=== PATIENT | female | born 1930 | race Caucasian/White ===

== ENCOUNTER 2016-12-03 19:12 | Inpatient (IN) | payer MEDICARE, BC ==
[~2016-12-03] VITALS: Ht 157.5 cm; Wt 90.0 kg
[~2016-12-03 19:12] MED LIST: ASPIRIN ADULT L81 MG PO; BUMEX1 M1 PO; DOCQLACE100 MG PO; FISH OIL1000 M2 PO; HUMALOG KWI100 MG/ML SC; JANUVIA100 MG PO; LANTUS100 MG/ML SC; LEVOTHYROXIN175 MC1 PO; LOSARTAN POT25 MG PO; MAGNESIUM CITR100 MG PO; OMEPRAZOLE20 M2 PO; OXYCOD/APAP1 TA4 PO; RESTORIL15 M1 PO; SPIRONOLACT25 MG PO; TRICOR145 MG PO; VITAMIN D-31000 UNI1 PO
[2016-12-03] MEDS ORDERED: SERTRALINE HCL25 MG PO (19:42)
[2016-12-03] MEDS ORDERED: LANTUS SOLOSTAR SC (19:45)
[2016-12-03 19:57] LABS: HEMATOCRIT 33.7 % (37.0-47.0); IMMATURE GRANULOCYTES 0.4 % (0.0-1.0); MEAN CELL VOLUME 85.8 fL CALC (80.0-100.0); MEAN CORPUSCULAR HGB CONC 32.6 g/L CALC (32.0-36.0); NEUT# 6.83 thou/uL (2.00-7.15); RED BLOOD COUNT 3.93 mill/uL (4.20-5.60); RED CELL DISTRI WIDTH 14.5 % (11.5-15.5)
[2016-12-03 20:16] LABS: ALKALINE PHOSPHATASE 105 u/l (38-126); AMYLASE 50 u/l (30-110); ANION GAP 15 (6-22 (CALC)); BILIRUBIN, TOTAL 0.4 mg/dL (0.0-1.4); BUN 34 mg/dL (8-23); BUN/CREATININE RATIO 28 (12-20 (CALC)); CALCIUM 9.8 mg/dL (8.4-10.2); CARBON DIOXIDE 26 mmol/l (22-30); CHLORIDE 102 mmol/l (95-108); CREATININE 1.2 mg/dL (0.5-1.0); GFR 43 ML/MIN (>=60 (CALC)); GFR FOR AFR.AMER. 52 ML/MIN (>=60 (CALC)); GLUCOSE 142 mg/dL (82-115); LIPASE 18 u/l (23-300); POTASSIUM 4.1 mmol/l (3.5-5.1); SGOT/AST 33 u/l (9-36); SGPT/ALT 20 u/l (11-66); SODIUM 139 mmol/l (137-146); TOTAL PROTEIN 7.4 g/dL (6.3-8.2)
[2016-12-03 20:27] LABS: MYOGLOBIN 73 ng/mL (0 - 62)
[2016-12-03 23:50] VITALS: BP 118/59
[2016-12-04 02:30] LABS: URINE BILIRUBIN - DIPSTICK NEGATIVE (NEGATIVE); URINE BLOOD DIPSTICK TRACE-INTACT (NEGATIVE); URINE CLARITY TURBID; URINE COLOR YELLOW; URINE GLUCOSE - DIPSTICK NEGATIVE (NEGATIVE); URINE KETONE NEGATIVE (NEGATIVE); URINE NITRITE - DIPSTICK NEGATIVE (Negative); URINE PROTEIN - DIPSTICK 30 mg/dL (NEG-TRACE); URINE SPECIFIC GRAVITY 1.025; URINE UROBILINOGEN - DIPSTICK 0.2 E.U./dL (0.2)
[2016-12-04 02:33] LABS: URINE LEUK ESTERASE MODERATE (NEGATIVE)
[2016-12-04 02:35] LABS: URINE BACTERIA MANY hpf; URINE SQUAMOUS EPITHELIAL CELL FEW EPI/hpf (0-FEW)
[2016-12-04 04:00] VITALS: BP 119/60
[2016-12-04 08:12] VITALS: BP 99/51
[2016-12-04 09:08] LABS: HEMATOCRIT 32.7 % (37.0-47.0); HEMOGLOBIN 10.5 g/dl (12.0-16.0); IMMATURE GRANULOCYTES 0.6 % (0.0-1.0); MEAN CELL VOLUME 87.2 fL CALC (80.0-100.0); MEAN CORPUSCULAR HGB CONC 32.1 g/L CALC (32.0-36.0); NEUT# 4.66 thou/uL (2.00-7.15); RED BLOOD COUNT 3.75 mill/uL (4.20-5.60); RED CELL DISTRI WIDTH 14.5 % (11.5-15.5)
[2016-12-04 09:40] LABS: ALBUMIN 3.6 g/dL (3.2-5.0); BILIRUBIN, TOTAL 0.4 mg/dL (0.0-1.4); CALCIUM 9.2 mg/dL (8.4-10.2); CREATININE 1.3 mg/dL (0.5-1.0); POTASSIUM 4.7 mmol/l (3.5-5.1); TOTAL PROTEIN 6.5 g/dL (6.3-8.2)
[2016-12-04 10:35] VITALS: BP 93/49
[2016-12-04 15:03] VITALS: BP 90/51
[2016-12-04 19:28] VITALS: BP 99/51
[2016-12-04 23:38] VITALS: BP 110/67
[2016-12-05 04:40] VITALS: BP 103/59
[2016-12-05 05:08] LABS: HEMATOCRIT 33.6 % (37.0-47.0); HEMOGLOBIN 10.6 g/dl (12.0-16.0); IMMATURE GRANULOCYTES 0.4 % (0.0-1.0); MEAN CELL VOLUME 88.4 fL CALC (80.0-100.0); MEAN CORPUSCULAR HGB 27.9 pG CALC (26.0-32.0); MEAN CORPUSCULAR HGB CONC 31.5 g/L CALC (32.0-36.0); NEUT# 7.09 thou/uL (2.00-7.15); RED BLOOD COUNT 3.8 mill/uL (4.20-5.60); RED CELL DISTRI WIDTH 14.6 % (11.5-15.5)
[2016-12-05 05:23] LABS: ALBUMIN 3.2 g/dL (3.2-5.0); BILIRUBIN, TOTAL 0.4 mg/dL (0.0-1.4); CALCIUM 9.1 mg/dL (8.4-10.2)
[2016-12-05 05:30] LABS: POTASSIUM 5.2 mmol/l (3.5-5.1)
[2016-12-05 05:52] LABS: TSH, 3RD GENERATION 2.15 uIU/mL (0.47 - 4.68)
[2016-12-05 08:45] VITALS: BP 106/43
[2016-12-05 11:38] VITALS: BP 99/47
[2016-12-05 16:06] VITALS: BP 111/61
[2016-12-05 20:48] VITALS: BP 161/62
[2016-12-06] VITALS (9 sets, daily range): BP systolic 113–247; BP diastolic 55–108
[2016-12-06 04:57] LABS: HEMOGLOBIN 9.8 g/dl (12.0-16.0); IMMATURE GRANULOCYTES 1.2 % (0.0-1.0); MEAN CELL VOLUME 85.7 fL CALC (80.0-100.0); MEAN CORPUSCULAR HGB CONC 32.7 g/L CALC (32.0-36.0); NEUT# 8.56 thou/uL (2.00-7.15); RED BLOOD COUNT 3.5 mill/uL (4.20-5.60); RED CELL DISTRI WIDTH 14.7 % (11.5-15.5)
[2016-12-06 05:23] LABS: ALBUMIN 3.1 g/dL (3.2-5.0); BILIRUBIN, TOTAL 0.4 mg/dL (0.0-1.4); CREATININE 1.8 mg/dL (0.5-1.0); POTASSIUM 4.9 mmol/l (3.5-5.1); TOTAL PROTEIN 5.9 g/dL (6.3-8.2)
[2016-12-07 04:20] VITALS: BP 135/71
[2016-12-07 06:01] LABS: HEMATOCRIT 32.7 % (37.0-47.0); HEMOGLOBIN 10.4 g/dl (12.0-16.0); IMMATURE GRANULOCYTES 0.9 % (0.0-1.0); MEAN CELL VOLUME 86.5 fL CALC (80.0-100.0); MEAN CORPUSCULAR HGB 27.5 pG CALC (26.0-32.0); MEAN CORPUSCULAR HGB CONC 31.8 g/L CALC (32.0-36.0); NEUT# 6.8 thou/uL (2.00-7.15); RED BLOOD COUNT 3.78 mill/uL (4.20-5.60); RED CELL DISTRI WIDTH 14.7 % (11.5-15.5)
[2016-12-07 06:04] LABS: CALCIUM 9.2 mg/dL (8.4-10.2); CREATININE 1.2 mg/dL (0.5-1.0); POTASSIUM 4.6 mmol/l (3.5-5.1)
[2016-12-07 08:08] VITALS: BP 140/73
[2016-12-07 11:00] VITALS: BP 134/49
[2016-12-07 15:23] VITALS: BP 130/54
[2016-12-07 19:08] VITALS: BP 137/71
[2016-12-08] VITALS: BP 138/74
[2016-12-08 03:20] VITALS: BP 136/63
[2016-12-08 05:31] LABS: ANION GAP 12 (6-22 (CALC)); BUN 21 mg/dL (8-23); BUN/CREATININE RATIO 22 (12-20 (CALC)); CALCIUM 9.1 mg/dL (8.4-10.2); CARBON DIOXIDE 24 mmol/l (22-30); CHLORIDE 109 mmol/l (95-108); GFR 53 ML/MIN (>=60 (CALC)); GFR FOR AFR.AMER. > 60 ML/MIN (>=60 (CALC)); GLUCOSE 132 mg/dL (82-115); POTASSIUM 4.7 mmol/l (3.5-5.1); SODIUM 141 mmol/l (137-146)
[2016-12-08 05:33] LABS: HEMATOCRIT 33.2 % (37.0-47.0); HEMOGLOBIN 10.7 g/dl (12.0-16.0); IMMATURE GRANULOCYTES 0.6 % (0.0-1.0); MEAN CELL VOLUME 87.1 fL CALC (80.0-100.0); MEAN CORPUSCULAR HGB 28.1 pG CALC (26.0-32.0); MEAN CORPUSCULAR HGB CONC 32.2 g/L CALC (32.0-36.0); NEUT# 6.68 thou/uL (2.00-7.15); RED BLOOD COUNT 3.81 mill/uL (4.20-5.60); RED CELL DISTRI WIDTH 14.8 % (11.5-15.5)
[2016-12-08 08:21] VITALS: BP 118/59
[2016-12-08 11:20] VITALS: BP 146/70
[2016-12-08 15:54] VITALS: BP 140/67
[2016-12-08 20:25] VITALS: BP 147/69
[2016-12-09 00:30] VITALS: BP 134/68
[2016-12-09 05:05] VITALS: BP 154/73
[2016-12-09 06:07] LABS: HEMATOCRIT 30.6 % (37.0-47.0); HEMOGLOBIN 10.1 g/dl (12.0-16.0); IMMATURE GRANULOCYTES 0.9 % (0.0-1.0); MEAN CELL VOLUME 85.5 fL CALC (80.0-100.0); MEAN CORPUSCULAR HGB 28.2 pG CALC (26.0-32.0); NEUT# 5.09 thou/uL (2.00-7.15); RED BLOOD COUNT 3.58 mill/uL (4.20-5.60); RED CELL DISTRI WIDTH 14.6 % (11.5-15.5)
[2016-12-09 06:32] LABS: ANION GAP 12 (6-22 (CALC)); BUN 16 mg/dL (8-23); BUN/CREATININE RATIO 19 (12-20 (CALC)); CARBON DIOXIDE 23 mmol/l (22-30); CHLORIDE 108 mmol/l (95-108); CREATININE 0.9 mg/dL (0.5-1.0); GFR 60 ML/MIN (>=60 (CALC)); GFR FOR AFR.AMER. > 60 ML/MIN (>=60 (CALC)); GLUCOSE 120 mg/dL (82-115); POTASSIUM 4.6 mmol/l (3.5-5.1); SODIUM 138 mmol/l (137-146)
[2016-12-09 09:56] VITALS: BP 141/70
[2016-12-09 11:43] VITALS: BP 145/67
[2016-12-09 16:02] VITALS: BP 138/66
[2016-12-09 19:35] VITALS: BP 144/54
[2016-12-10 00:20] VITALS: BP 163/81
[2016-12-10 04:07] VITALS: BP 147/65
[2016-12-10 05:46] LABS: HEMATOCRIT 29.1 % (37.0-47.0); HEMOGLOBIN 9.5 g/dl (12.0-16.0); IMMATURE GRANULOCYTES 0.5 % (0.0-1.0); MEAN CELL VOLUME 84.8 fL CALC (80.0-100.0); MEAN CORPUSCULAR HGB 27.7 pG CALC (26.0-32.0); MEAN CORPUSCULAR HGB CONC 32.6 g/L CALC (32.0-36.0); NEUT# 4.39 thou/uL (2.00-7.15); RED BLOOD COUNT 3.43 mill/uL (4.20-5.60); RED CELL DISTRI WIDTH 14.7 % (11.5-15.5)
[2016-12-10 06:06] LABS: ANION GAP 12 (6-22 (CALC)); BUN 17 mg/dL (8-23); BUN/CREATININE RATIO 18 (12-20 (CALC)); CALCIUM 8.8 mg/dL (8.4-10.2); CARBON DIOXIDE 25 mmol/l (22-30); CHLORIDE 106 mmol/l (95-108); CREATININE 0.9 mg/dL (0.5-1.0); GFR 60 ML/MIN (>=60 (CALC)); GFR FOR AFR.AMER. > 60 ML/MIN (>=60 (CALC)); GLUCOSE 116 mg/dL (82-115); POTASSIUM 4.2 mmol/l (3.5-5.1); SODIUM 139 mmol/l (137-146)
[2016-12-10 08:54] VITALS: BP 150/55
[2016-12-10 12:56] VITALS: BP 148/72
[2016-12-10 16:25] VITALS: BP 140/71
[2016-12-10 19:00] VITALS: BP 127/63
[2016-12-11 00:21] VITALS: BP 118/59
[2016-12-11 06:17] VITALS: BP 151/76
[2016-12-11 09:03] VITALS: BP 152/74
[2016-12-11] MEDS ORDERED: TRICOR145 MG PO (09:15)
[2016-12-11] MEDS ORDERED: SERTRALINE HCL25 MG PO (09:16)
[2016-12-11] MEDS ORDERED: SPIRONOLACT25 MG PO (09:16)
[2016-12-11] MEDS ORDERED: OXYCOD/APAP1 TA4 PO (09:16)
[2016-12-11] MEDS ORDERED: ASPIRIN ADULT L81 MG PO (09:16)
[2016-12-11] MEDS ORDERED: LOSARTAN POT25 MG PO (09:16)
[2016-12-11] MEDS ORDERED: OMEPRAZOLE20 M2 PO (09:17)
[2016-12-11] MEDS ORDERED: DOCQLACE100 MG PO (09:17)
[2016-12-11] MEDS ORDERED: BUMEX1 M1 PO (09:17)
[2016-12-11] MEDS ORDERED: LANTUS SOLOSTAR SC (09:17)
[2016-12-11] MEDS ORDERED: JANUVIA100 MG PO (09:17)
[2016-12-11] MEDS ORDERED: HUMALOG KWI100 MG/ML SC (09:18)
[2016-12-11] MEDS ORDERED: FISH OIL1000 M2 PO (09:18)
[2016-12-11] MEDS ORDERED: VITAMIN D-31000 UNI1 PO (09:18)
[2016-12-11] MEDS ORDERED: LEVOTHYROXIN175 MC1 PO (09:18)
[2016-12-11] MEDS ORDERED: LANTUS100 MG/ML SC (09:18)
[2016-12-11] MEDS ORDERED: ROCEPHIN 1 GM1 GM IM (09:22)
[2016-12-11] MEDS ORDERED: PERCOCET 5/325M1 TAB PO (09:22)
== END 2016-12-11 14:15 | DRG 392 ==
LOC: ENPENDDIS → ED 19:12 → ED-I 22:05 → ED 22:19 → MS2 22:20
PROVIDERS: Emergency Medicine; ADMIT Internal Medicine Geriatric Medicine; ATTEND Internal Medicine Geriatric Medicine
PROC: 02HV33Z Insertion of Infusion Device into Superior Vena Cava, Percutaneous Approach (ICD-10-PCS; principal; 2016-12-09)
PROC: B518ZZA Fluoroscopy of Superior Vena Cava, Guidance (ICD-10-PCS; 2016-12-09)
DX: K57.32 Diverticulitis of large intestine without perforation or abscess without bleeding (principal); N39.0 Urinary tract infection, site not specified; E11.9 Type 2 diabetes mellitus without complications; I10 Essential (primary) hypertension; B96.20 Unspecified Escherichia coli [E. coli] as the cause of diseases classified elsewhere; I25.10 Atherosclerotic heart disease of native coronary artery without angina pectoris; K21.9 Gastro-esophageal reflux disease without esophagitis; E78.5 Hyperlipidemia, unspecified; M19.90 Unspecified osteoarthritis, unspecified site; E03.9 Hypothyroidism, unspecified; G89.29 Other chronic pain; M54.5 Low back pain; J40 Bronchitis, not specified as acute or chronic; F41.9 Anxiety disorder, unspecified; Z87.11 Personal history of peptic ulcer disease

== ENCOUNTER 2016-12-12 10:24 | Emergency (ER) | payer MEDICARE, BC ==
[~2016-12-12] VITALS: Ht 157.5 cm; Wt 103.0 kg
[~2016-12-12 10:24] MED LIST changes: +LANTUS SOLOSTAR SC; +PERCOCET 5/325M1 TAB PO; +ROCEPHIN 1 GM1 GM IM; +SERTRALINE HCL25 MG PO
[2016-12-12 11:17] VITALS: BP 134/59
== END 2016-12-12 11:38 ==
LOC: ED 10:24
DX: S91.112A Laceration without foreign body of left great toe without damage to nail, initial encounter (principal); J44.9 Chronic obstructive pulmonary disease, unspecified; N39.0 Urinary tract infection, site not specified; E11.9 Type 2 diabetes mellitus without complications; I10 Essential (primary) hypertension; E03.9 Hypothyroidism, unspecified; X58.XXXA Exposure to other specified factors, initial encounter

== ENCOUNTER 2017-04-24 07:01 | Emergency (ER) | payer MEDICARE, BC ==
[~2017-04-24] VITALS: Ht 157.5 cm; Wt 90.0 kg
[2017-04-24 07:37] LABS: HEMATOCRIT 33.5 % (37.0-47.0); HEMOGLOBIN 10.8 g/dl (12.0-16.0); IMMATURE GRANULOCYTES 0.4 % (0.0-1.0); MEAN CELL VOLUME 85.9 fL CALC (80.0-100.0); MEAN CORPUSCULAR HGB 27.7 pG CALC (26.0-32.0); MEAN CORPUSCULAR HGB CONC 32.2 g/L CALC (32.0-36.0); NEUT# 8.49 thou/uL (2.00-7.15); RED BLOOD COUNT 3.9 mill/uL (4.20-5.60); RED CELL DISTRI WIDTH 14.6 % (11.5-15.5)
[2017-04-24 07:41] LABS: ALBUMIN 4.4 g/dL (3.2-5.0); BILIRUBIN, TOTAL 0.4 mg/dL (0.0-1.4); CREATININE 1.7 mg/dL (0.5-1.0); TOTAL PROTEIN 7.6 g/dL (6.3-8.2)
[2017-04-24 07:42] LABS: POTASSIUM 5.2 mmol/l (3.5-5.1)
[2017-04-24 07:55] LABS: PROTHROMBIN TIME 11.4 SECONDS (9.0-12.5)
[2017-04-24] MEDS ORDERED: CALCIUM600 M3 PO (08:12)
[2017-04-24] MEDS ORDERED: HYDROCHLOROT25 MG PO (08:13)
[2017-04-24 08:43] LABS: MAGNESIUM 1.5 mg/dL (1.6-2.3)
[2017-04-24 08:45] LABS: URINE BILIRUBIN - DIPSTICK NEGATIVE (NEGATIVE); URINE BLOOD DIPSTICK LARGE (NEGATIVE); URINE COLOR YELLOW; URINE GLUCOSE - DIPSTICK NEGATIVE (NEGATIVE); URINE KETONE TRACE mg/dL (NEGATIVE); URINE LEUK ESTERASE MODERATE (Negative); URINE NITRITE - DIPSTICK NEGATIVE (Negative); URINE PROTEIN - DIPSTICK 30 mg/dL (NEG-TRACE); URINE UROBILINOGEN - DIPSTICK 0.2 E.U./dL (0.2)
[2017-04-24 08:57] LABS: URINE CLARITY HAZY
[2017-04-24 08:59] LABS: URINE BACTERIA FEW hpf; URINE EPITHELIAL CELLS MODERATE EPI/hpf (0-FEW)
[2017-04-24 09:14] LABS: TSH, 3RD GENERATION 4.67 uIU/mL (0.47 - 4.68)
[2017-04-24 09:59] LABS: C. DIFFICILE TOXIN A&B NEGATIVE (NEGATIVE)
[2017-04-24 11:21] VITALS: BP 104/51
== END 2017-04-24 11:40 | disposition short-term general hospital (02) ==
LOC: ED 07:01
PROVIDERS: Emergency Medicine
DX: R00.1 Bradycardia, unspecified (principal); I95.9 Hypotension, unspecified; R10.9 Unspecified abdominal pain; K57.32 Diverticulitis of large intestine without perforation or abscess without bleeding; R19.7 Diarrhea, unspecified; N39.0 Urinary tract infection, site not specified; I10 Essential (primary) hypertension; E03.9 Hypothyroidism, unspecified; E11.9 Type 2 diabetes mellitus without complications; Z79.4 Long term (current) use of insulin
CPT/HCPCS: J3475

== ENCOUNTER 2017-05-30 11:48 | Emergency (ER) | payer MEDICARE, BC ==
[~2017-05-30] VITALS: Ht 157.5 cm; Wt 82.0 kg
[~2017-05-30 11:48] MED LIST changes: +CALCIUM600 M3 PO; +HYDROCHLOROT25 MG PO
[2017-05-30] MEDS ORDERED: MAXZIDE-2537.5 MG/TA PO (12:24)
[2017-05-30] MEDS ORDERED: LANTUS SOL100 UNIT/M SC ×2 (12:26)
[2017-05-30] MEDS ORDERED: VITAMIN D32000 UNIT PO (12:28)
[2017-05-30 13:45] LABS: URINE BILIRUBIN - DIPSTICK NEGATIVE (NEGATIVE); URINE BLOOD DIPSTICK TRACE-INTACT (NEGATIVE); URINE COLOR YELLOW; URINE GLUCOSE - DIPSTICK NEGATIVE (NEGATIVE); URINE KETONE NEGATIVE (NEGATIVE); URINE NITRITE - DIPSTICK NEGATIVE (Negative); URINE PH 5.5 (4.5-8.0); URINE PROTEIN - DIPSTICK 30 mg/dL (NEG-TRACE); URINE UROBILINOGEN - DIPSTICK 0.2 E.U./dL (0.2)
[2017-05-30 13:47] LABS: HEMATOCRIT 32.3 % (37.0-47.0); HEMOGLOBIN 10.2 g/dl (12.0-16.0); IMMATURE GRANULOCYTES 0.2 % (0.0-1.0); MEAN CELL VOLUME 86.6 fL CALC (80.0-100.0); MEAN CORPUSCULAR HGB 27.3 pG CALC (26.0-32.0); MEAN CORPUSCULAR HGB CONC 31.6 g/L CALC (32.0-36.0); NEUT# 5.46 thou/uL (2.00-7.15); RED BLOOD COUNT 3.73 mill/uL (4.20-5.60); RED CELL DISTRI WIDTH 14.9 % (11.5-15.5)
[2017-05-30 13:49] LABS: URINE LEUK ESTERASE SMALL (NEGATIVE)
[2017-05-30 13:50] LABS: URINE CLARITY CLOUDY
[2017-05-30 13:52] LABS: ALKALINE PHOSPHATASE 98 u/l (38-126); AMYLASE 30 u/l (30-110); ANION GAP 18 (6-22 (CALC)); BILIRUBIN, TOTAL 0.5 mg/dL (0.0-1.4); BUN 28 mg/dL (8-23); BUN/CREATININE RATIO 30 (12-20 (CALC)); CALCIUM 9.3 mg/dL (8.4-10.2); CARBON DIOXIDE 19 mmol/l (22-30); CHLORIDE 106 mmol/l (95-108); CREATININE 0.9 mg/dL (0.5-1.0); GFR 60 ML/MIN (>=60 (CALC)); GFR FOR AFR.AMER. > 60 ML/MIN (>=60 (CALC)); GLUCOSE 93 mg/dL (82-115); LIPASE 18 u/l (23-300); SGOT/AST 25 u/l (9-36); SGPT/ALT 24 u/l (11-66); SODIUM 137 mmol/l (137-146)
[2017-05-30 13:54] LABS: POTASSIUM 5.8 mmol/l (3.5-5.1)
[2017-05-30 14:04] LABS: MYOGLOBIN 74 ng/mL (0 - 62)
[2017-05-30 14:20] LABS: URINE BACTERIA MANY hpf; URINE SQUAMOUS EPITHELIAL CELL FEW EPI/hpf (0-FEW); URINE WBC 20-50 WBC/hpf (0-5)
[2017-05-30 14:32] LABS: TSH, 3RD GENERATION 13.8 uIU/mL (0.47 - 4.68)
[2017-05-30 16:22] VITALS: BP 122/89
== END 2017-05-30 16:13 | disposition short-term general hospital (02) ==
LOC: ED 11:48
PROVIDERS: Emergency Medicine
DX: R00.1 Bradycardia, unspecified (principal); N39.0 Urinary tract infection, site not specified; B96.20 Unspecified Escherichia coli [E. coli] as the cause of diseases classified elsewhere; M19.90 Unspecified osteoarthritis, unspecified site; J44.9 Chronic obstructive pulmonary disease, unspecified; E11.9 Type 2 diabetes mellitus without complications; I10 Essential (primary) hypertension; E03.9 Hypothyroidism, unspecified

== ENCOUNTER 2018-03-08 12:27 | Emergency (ER) | payer MEDICARE, BC ==
[~2018-03-08] VITALS: Ht 157.5 cm; Wt 90.9 kg
[~2018-03-08 12:27] MED LIST changes: +LANTUS SOL100 UNIT/M SC; +MAXZIDE-2537.5 MG/TA PO; +VITAMIN D32000 UNIT PO
[2018-03-08] MEDS ORDERED: PERCOCET 10/31 COMBO PO (12:42)
[2018-03-08] MEDS ORDERED: FISH OIL1000 MG PO (12:42)
[2018-03-08] MEDS ORDERED: HUMALOG KW100 UNIT/M SC (12:45)
[2018-03-08] MEDS ORDERED: COLACE100 MG PO (12:46)
[2018-03-08] MEDS ORDERED: SERTRALINE25 MG PO (12:46)
[2018-03-08] MEDS ORDERED: ASPIRINCHW 81MG PO (12:47)
[2018-03-08] MEDS ORDERED: LOSARTAN POT25 MG PO (12:47)
[2018-03-08] MEDS ORDERED: LEVOTHYROXIN100 MCG PO (12:49)
[2018-03-08] MEDS ORDERED: ACETAMIN325 MG PO (12:50)
[2018-03-08] MEDS ORDERED: PRILOSEC20 MG/CAP PO (12:51)
[2018-03-08] MEDS ORDERED: LASIX 40 MG TAB40 MG PO (12:52)
[2018-03-08 15:20] VITALS: BP 159/74
== END 2018-03-08 15:20 ==
LOC: ED 12:27
DX: S00.83XA Contusion of other part of head, initial encounter (principal); S80.01XA Contusion of right knee, initial encounter; S90.01XA Contusion of right ankle, initial encounter; S02.2XXA Fracture of nasal bones, initial encounter for closed fracture; R04.0 Epistaxis; W18.11XA Fall from or off toilet without subsequent striking against object, initial encounter; Y93.E8 Activity, other personal hygiene; Y92.121 Bathroom in nursing home as the place of occurrence of the external cause; I10 Essential (primary) hypertension; Z95.0 Presence of cardiac pacemaker

== ENCOUNTER 2018-10-25 20:08 | Observation (INO) | payer MEDICARE, BC ==
[~2018-10-25] VITALS: Ht 157.5 cm; Wt 96.0 kg
[~2018-10-25 20:08] MED LIST changes: +ACETAMIN325 MG PO; +ASPIRINCHW 81MG PO; +COLACE100 MG PO; +FISH OIL1000 MG PO; +HUMALOG KW100 UNIT/M SC; +LASIX 40 MG TAB40 MG PO; +LEVOTHYROXIN100 MCG PO; +PERCOCET 10/31 COMBO PO; +PRILOSEC20 MG/CAP PO; +SERTRALINE25 MG PO
--- NOTE | 2018-10-25 20:21 | NUR ---
PT TO ROOM PER EMS/PT APPEARS A/O X3, PT IS MCGRATH
[2018-10-25 20:52] LABS: HEMOGLOBIN 11.1 g/dl (12.0-16.0); IMMATURE GRANULOCYTES 0.7 % (0.0-5.0); MEAN CELL VOLUME 83.9 fL CALC (80.0-100.0); MEAN CORPUSCULAR HGB 26.6 pG CALC (26.0-32.0); MEAN CORPUSCULAR HGB CONC 31.7 g/L CALC (32.0-36.0); NEUT# 8.22 thou/uL (2.00-7.15); RED BLOOD COUNT 4.17 mill/uL (4.20-5.60); RED CELL DISTRI WIDTH 14.3 % (11.5-15.5)
[2018-10-25 21:08] LABS: ALBUMIN 3.9 g/dL (3.2-5.0); ALKALINE PHOSPHATASE 109 u/l (38-126); ANION GAP 15 (6-22 (CALC)); BILIRUBIN, TOTAL 0.4 mg/dL (0.0-1.4); BUN 28 mg/dL (8-23); BUN/CREATININE RATIO 26 (12-20 (CALC)); CARBON DIOXIDE 28 mmol/l (22-30); CHLORIDE 99 mmol/l (95-108); CREATININE 1.1 mg/dL (0.5-1.0); GFR 47 ML/MIN (>=60 (CALC)); GFR FOR AFR.AMER. 57 ML/MIN (>=60 (CALC)); POTASSIUM 4.1 mmol/l (3.5-5.1); SGOT/AST 33 u/l (9-36); SODIUM 138 mmol/l (137-146); TOTAL PROTEIN 6.9 g/dL (6.3-8.2)
--- NOTE | 2018-10-25 21:15 | NUR ---
PT BACK FROM CT. WAITING ON RESULTS. PAIN IMPROVED 11/14
[2018-10-25 21:20] LABS: MYOGLOBIN 245 ng/mL (0 - 62)
--- NOTE | 2018-10-25 22:25 | NUR ---
ALL RESULTS ON CHART.
--- NOTE | 2018-10-25 22:51 | NUR ---
REPPORT GIVEN TO VALERIANO SANTANA
--- NOTE | 2018-10-25 22:57 | NUR ---
PT TRANSPORTED TO FLOOR VIA STRETCHER BY [facility] [employer] [employer].
[2018-10-25 23:00] VITALS: BP 156/74
--- NOTE | 2018-10-25 23:00 | NUR ---
PT ARRIVED TO UNIT VIA STRETCHER WITH ER STAFF; ASSISTED TO BED X 3 PERSON MAX ASSIST. ALERT AND ORIENTED; HARD OF HEARING. C/O MILD HEADACHE; NOTABLE DISCOLORATION AND ABRASION TO LEFT FRONTAL FOREHEAD AND FACE. RESPIRATIONS EVEN AND UNLABORED ON ROOM AIR. UPON ARRIVAL PT WAS INCONTINENT OF URINE AND STOOL; HYGEINE GIVEN. PHOTOS TAKEN OF DISCOLORATIONS TO FACE AND RIGHT HIP. ORIENTED TO ROOM AND CALL LIGHT SYSTEM. PLAN OF CARE DISCUSSED. PT ENCOURAGED TO VERBALIZE CONCERNS. STATES UNDERSTANDING. SAFETY MEASURES IN PLACE. CALL LIGHT WITHIN REACH.
--- NOTE | 2018-10-25 23:54 | NUR ---
ASSESSMENT COMPLETE. IV FLUIDS INITIATED; 4+ PITTING EDEMA NOTED TO BLE; ELEVATED ON PILLOWS. 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
[2018-10-26] VITALS: BP 123/81
--- NOTE | 2018-10-26 03:00 | NUR ---
OXYGEN APPLIED AT 2L VIA NC FOR INTERMITTENT DROPPING OF OXYGEN SATURATION. PT HAS HX OF SLEEP APNEA. DOES NOT WEAR OXYGEN AT HOME. CURRENTLY 99% WITH OXYGEN IN PLACE.
[2018-10-26 04:00] VITALS: BP 139/64
--- NOTE | 2018-10-26 05:54 | NUR ---
TYLENOL GIVEN FOR HEADACHE AND AM MEDS ADMINISTERED. HOLD COLACE FOR LOOSE STOOLS. COOL WASH CLOTH APPLIED TO LEFT FACE; INCREASED SWELLING TO FACE; EYE HARDER TO OPEN. NEURO CHECK WNL.
[2018-10-26 06:34] LABS: HEMATOCRIT 34.1 % (37.0-47.0); IMMATURE GRANULOCYTES 0.3 % (0.0-5.0); MEAN CELL VOLUME 82.8 fL CALC (80.0-100.0); MEAN CORPUSCULAR HGB 26.7 pG CALC (26.0-32.0); MEAN CORPUSCULAR HGB CONC 32.3 g/L CALC (32.0-36.0); NEUT# 5.35 thou/uL (2.00-7.15); RED BLOOD COUNT 4.12 mill/uL (4.20-5.60); RED CELL DISTRI WIDTH 14.1 % (11.5-15.5)
[2018-10-26 06:50] LABS: ALBUMIN 3.6 g/dL (3.2-5.0); ALKALINE PHOSPHATASE 98 u/l (38-126); ANION GAP 12 (6-22 (CALC)); BILIRUBIN, TOTAL 0.4 mg/dL (0.0-1.4); BUN 28 mg/dL (8-23); BUN/CREATININE RATIO 28 (12-20 (CALC)); CARBON DIOXIDE 30 mmol/l (22-30); CHLORIDE 100 mmol/l (95-108); GFR 53 ML/MIN (>=60 (CALC)); GFR FOR AFR.AMER. > 60 ML/MIN (>=60 (CALC)); HDL CHOLESTEROL 42 mg/dL (>=40); POTASSIUM 3.7 mmol/l (3.5-5.1); SGOT/AST 28 u/l (9-36); SODIUM 138 mmol/l (137-146); TOTAL PROTEIN 6.3 g/dL (6.3-8.2); TOTAL TRIGLYCERIDES 209 mg/dl (30-149); VLDL CHOLESTROL 42 mg/dl (0-48 (CALC))
[2018-10-26 06:57] LABS: CALCULATED LDLCHOLESTEROL 141 mg/dL (62-129 (CALC)); CHOLESTEROL HDL RATIO 5.4 (<4.4 (CALC)); TOTAL CHOLESTEROL 225 mg/dl (0-199)
[2018-10-26 08:00] VITALS: BP 140/56
--- NOTE | 2018-10-26 09:35 | NUR ---
PT SEEN BY DR MARS THIS AM, ORDERS CT FACIAL BONES PER ORBITAL TENDERNESS AND SWELLING. PT ALERT AND ORIENTED X 3, STATES THAT SHE USES ELECTRIC WHEELCHAIR FOR AMBULATION AT [facility]. NEURO CHECKS WNL.
--- NOTE | 2018-10-26 12:00 | NUR ---
PT REMAINS AT REST IN THE BED, NO DISTRESS NOTED. NO COMPLAINTS OF PAIN. PT STATES THAT SHE TAKES LANTUS BID, ORDER RECEIVED FROM DR MARS.
--- NOTE | 2018-10-26 12:23 | NUR ---
PT SITTING UP IN BED, EATING LUNCH.
[2018-10-26 14:00] VITALS: BP 160/58
--- NOTE | 2018-10-26 16:16 | NUR ---
PT HAS HAD AN UNEVENTFUL AFTERNOON, SEEN RESTING QUIETLY IN THE BED, NO DISTRESS, NO COMPLAINT OF PAIN OR OTHERWISE.
--- NOTE | 2018-10-26 17:09 | NUR ---
PT OFF UNIT, TO CATSCAN VIA WC WITH THIS RN.
--- NOTE | 2018-10-26 18:18 | NUR ---
PT WATCHING TELVISION IN BED. ICE PACK APPLIED TO FOREHEAD. TELE IN PLACE. PT DENIES ANY NEEDS. CALL LIGHT IN REACH. WILL CONTINUE TO MONITOR.
[2018-10-26 18:55] VITALS: BP 159/70
--- NOTE | 2018-10-26 19:00 | NUR ---
REPORT RECIEVED FROM DOMINIQUE.VALVE LAPPER. PT A/OX3. ABLE TO VOICE NEEDS. POC DISCUSSED. PT VOICED UNDERSTANDING. PT FALL RISK. EDUCATED TO CALL BEFORE ATTEMPTING TO GET. IV PATENT. NO S/S OF INFECTION. BED IN LOWEST POSITION. CALL LIGHT IN REACH. WILL MONITOR.
[2018-10-26 23:42] VITALS: BP 150/78
--- NOTE | 2018-10-27 | NUR ---
PT RESTING WITH EYES CLOSED. NO DISTRESS NOTED. IV PATENT. IV ABX ADMINISTRED. PT DENIES PAIN. WILL CONTINUE TO MONITOR.
[2018-10-27 04:15] VITALS: BP 138/72
--- NOTE | 2018-10-27 04:59 | NUR ---
PT RESTING INBED WITH EYES CLOSED. EASILY AROUSABLE. NO PAIN OR DISTRESS NOTED. BED IN LOWEST POSITION. CALL LIGHT WITHIN REACH WILL CONTINUE.
[2018-10-27 07:36] VITALS: BP 157/67
--- NOTE | 2018-10-27 07:45 | NUR ---
REPORT RECEIVED FROM NIGHT NURSE; PT SITTING UP IN CHAIR WATCHING TV; A/OX3; RESP EVEN AND UNLABORED ON ROOM AIR; TELE IN PLACE; PULSES STRONG; ABRAISION & DISCOLORATION NOTED TO LEFT FRONTAL FOREHEAD AND FACE; ABLE TO OPEN LEFT EYE PARTIALY: +3 EDEMA NOTED TO BLE; NS AT 125CC/HR SITE APPEARS HEALTHY; SAFETY PRECAUTION REINFORCE; CALL CULLEN IN REACH; AM MEDS ADMINISTERED, TOLERATED WELL;
--- NOTE | 2018-10-27 08:57 | NUR ---
DR MARS AT BEDSIDE TO DISCUSS POC.
[2018-10-27] MEDS ORDERED: PERCOCET 10/31 COMBO PO (09:02)
[2018-10-27 11:15] VITALS: BP 138/66
[2018-10-27 11:17] LABS: HEMATOCRIT 34.7 % (37.0-47.0); HEMOGLOBIN 10.8 g/dl (12.0-16.0); IMMATURE GRANULOCYTES 0.5 % (0.0-5.0); MEAN CORPUSCULAR HGB 26.2 pG CALC (26.0-32.0); MEAN CORPUSCULAR HGB CONC 31.1 g/L CALC (32.0-36.0); NEUT# 4.97 thou/uL (2.00-7.15); RED BLOOD COUNT 4.13 mill/uL (4.20-5.60); RED CELL DISTRI WIDTH 14.4 % (11.5-15.5)
[2018-10-27 11:49] LABS: ANION GAP 14 (6-22 (CALC)); BUN 21 mg/dL (8-23); BUN/CREATININE RATIO 29 (12-20 (CALC)); CARBON DIOXIDE 25 mmol/l (22-30); CHLORIDE 106 mmol/l (95-108); CREATININE 0.7 mg/dL (0.5-1.0); GFR > 60 ML/MIN (>=60 (CALC)); GFR FOR AFR.AMER. > 60 ML/MIN (>=60 (CALC)); SODIUM 141 mmol/l (137-146)
--- NOTE | 2018-10-27 12:02 | NUR ---
PT SITTING UP IN CHAIR WATCHING TV; EATING LUNCH; RESP EVEN AND UNLABORED; ABLE TO OPEN L EYE FULLY; VOICE NO CONCERNS;
--- NOTE | 2018-10-27 12:33 | NUR ---
DC INSTRUCTIONS GIVEN TO PT AND FAMILIES; VERBALIZE UNDERSTANDING; GRAND DAUGHTER WILL TAKE PT BACK TO THE [facility].
--- NOTE | 2018-10-27 12:54 | NUR ---
Discharge instructions given. Patient verbalizes understanding of same. Discharged in stable condition via Wheelchair to *Other with family. All belongings sent with pt.
--- NOTE | 2018-10-27 13:00 | NUR ---
REPORT GIVEN TO AMOL/KEITH LOPEZ; PRESCRIPTION AND DC ORDERS GIVEN TO PT.
== END 2018-10-27 12:55 ==
LOC: ED 20:08 → ED-I 21:29 → ICU 21:51 → ED 21:51 → ICU 21:51 → MS2 10-26 17:17
PROVIDERS: Emergency Medicine; ADMIT Internal Medicine Geriatric Medicine; ATTEND Internal Medicine Geriatric Medicine
DX: S05.11XA Contusion of eyeball and orbital tissues, right eye, initial encounter (principal); S70.01XA Contusion of right hip, initial encounter; I10 Essential (primary) hypertension; E03.9 Hypothyroidism, unspecified; E11.42 Type 2 diabetes mellitus with diabetic polyneuropathy; J44.9 Chronic obstructive pulmonary disease, unspecified; E78.5 Hyperlipidemia, unspecified; I25.10 Atherosclerotic heart disease of native coronary artery without angina pectoris; M19.90 Unspecified osteoarthritis, unspecified site; F41.9 Anxiety disorder, unspecified; G47.30 Sleep apnea, unspecified; W18.2XXA Fall in (into) shower or empty bathtub, initial encounter; Y93.E1 Activity, personal bathing and showering; Y92.091 Bathroom in other non-institutional residence as the place of occurrence of the external cause; Z95.0 Presence of cardiac pacemaker
CPT/HCPCS: G0378

== ENCOUNTER 2018-11-17 18:30 | Emergency (ER) | payer MEDICARE, BC ==
[~2018-11-17] VITALS: Ht 157.5 cm; Wt 82.0 kg
[2018-11-17 22:05] VITALS: BP 179/79
== END 2018-11-17 22:04 | disposition home or self-care (01) ==
LOC: ED 18:30
DX: S00.81XA Abrasion of other part of head, initial encounter (principal); E11.9 Type 2 diabetes mellitus without complications; E03.9 Hypothyroidism, unspecified; J44.9 Chronic obstructive pulmonary disease, unspecified; I10 Essential (primary) hypertension; W19.XXXA Unspecified fall, initial encounter; Z79.4 Long term (current) use of insulin; Z91.81 History of falling; Z95.0 Presence of cardiac pacemaker

== ENCOUNTER → 2018-11-19 | Outpatient (REF) | payer MEDICARE, BC ==
[~2018-11-19] MED LIST changes: +ROCEPHIN 1 GM1 GM IV
== END | disposition home or self-care (01) ==
LOC: DI 11:50
PROVIDERS: ATTEND Nurse Practitioner Family
DX: S69.92XA Unspecified injury of left wrist, hand and finger(s), initial encounter (principal); S69.91XA Unspecified injury of right wrist, hand and finger(s), initial encounter

== ENCOUNTER 2018-11-23 16:19 | Inpatient (IN) | payer MEDICARE, BC ==
[~2018-11-23] VITALS: Ht 157.5 cm; Wt 100.3 kg
[~2018-11-23 16:19] MED LIST changes: -ROCEPHIN 1 GM1 GM IV
--- NOTE | 2018-11-23 16:33 | NUR ---
PT ARRIVED TO MED/SURG ROOM 281 VIA WHEELCHAIR IN STABLE CONDITION ACCOMPANIED BY GRAND-DAUGHTER;PT AMBULATED WITH A WEAK GAIT AND 1 PERSON ASSIST TO BEDSIDE;WT AND VS OBTAINED BY PHOEBE BARR;PT A&O X3, ORIENTED TO ROOM AND CALL LIGHT SYSTEM;PT RESIDES AT THE [facility] AND REPORTS FREQUENT FALLS.THE MOST RECENT FALL BEING 1 WEEK AGO;PT DENIES ANY CURRENT PAIN,PAIN SCALE AND REPORTING EDUCATED;ASSESSMENT COMPLETED;RESPIRATIONS EVEN AND UNLABORED ON RA,CLEAR/DIMINISHED LUNG SOUNDS NOTED;ABDOMEN DISTENDED/SOFT ON PALPATION AND ACTIVE IN ALL4 QUADRANTS, LAST BM 11/23/18;WEAK PEDAL PULSES;HEALING WOUND TO LEFT UPPER FORHEAD NOTED AND BRUISED EYE,WOUND FROM BIOPSY TO RLL NOTED AND CLEANSED WITH SALINE,TELFA AND KERLEX APPLIED;PHOTOGRAPHS IN CHART;#22G STARTED TO LEFT UPPER ARM ON SECOND ATTEMPT BY THIS WRITTER AND NS STARTED @ 60ML/HR PER ORDER;ACCUCHECK OBTAINED RESULTING IN 270, SLIDING SCALE NOVOLOG TO BE ADMINISTERED PER ORDER;CONTACT PRECAUTIONS IN PLACE FOR HX OF MRSA AND NASAL SWAB OBTAINED PER PROTOCAL;SEIZURE PRECAUTIONS PUT INTO PLACE FOR HX OF SEIZURES;PT DENIES ANY ADDITIONAL NEEDS AT THIS TIME AND IS ENCOURAGED TO CALL FOR ASSISTANCE IF NEEDED;CALL LIGHT IN REACH;WILL CONTINUE TO MONITOR
[2018-11-23 16:53] VITALS: BP 166/79
[2018-11-23 17:25] LABS: HEMATOCRIT 31.3 % (37.0-47.0); HEMOGLOBIN 9.7 g/dl (12.0-16.0); IMMATURE GRANULOCYTES 0.6 % (0.0-5.0); MEAN CELL VOLUME 81.5 fL CALC (80.0-100.0); MEAN CORPUSCULAR HGB 25.3 pG CALC (26.0-32.0); NEUT# 6.6 thou/uL (2.00-7.15); RED BLOOD COUNT 3.84 mill/uL (4.20-5.60); RED CELL DISTRI WIDTH 14.6 % (11.5-15.5)
[2018-11-23 17:38] LABS: ANION GAP 15 (6-22 (CALC)); BUN 20 mg/dL (8-23); BUN/CREATININE RATIO 28 (12-20 (CALC)); CARBON DIOXIDE 26 mmol/l (22-30); CHLORIDE 99 mmol/l (95-108); CREATININE 0.7 mg/dL (0.5-1.0); GFR > 60 ML/MIN (>=60 (CALC)); GFR FOR AFR.AMER. > 60 ML/MIN (>=60 (CALC)); POTASSIUM 3.3 mmol/l (3.5-5.1); SODIUM 137 mmol/l (137-146)
[2018-11-23 18:35] VITALS: BP 150/72
[2018-11-23 20:23] LABS: URINE BILIRUBIN - DIPSTICK NEGATIVE (NEGATIVE); URINE BLOOD DIPSTICK NEGATIVE (NEGATIVE); URINE COLOR YELLOW; URINE GLUCOSE - DIPSTICK NEGATIVE (NEGATIVE); URINE KETONE NEGATIVE (NEGATIVE); URINE NITRITE - DIPSTICK NEGATIVE (Negative); URINE PROTEIN - DIPSTICK 100 mg/dL (NEG-TRACE); URINE UROBILINOGEN - DIPSTICK 0.2 E.U./dL (0.2)
[2018-11-23 20:28] LABS: URINE LEUK ESTERASE MODERATE (NEGATIVE)
[2018-11-23 20:36] LABS: URINE BACTERIA MANY hpf; URINE SQUAMOUS EPITHELIAL CELL FEW EPI/hpf (0-FEW)
[2018-11-24 04:24] VITALS: BP 152/70
[2018-11-24 05:05] LABS: HEMATOCRIT 29.2 % (37.0-47.0); HEMOGLOBIN 9.1 g/dl (12.0-16.0); IMMATURE GRANULOCYTES 0.5 % (0.0-5.0); MEAN CELL VOLUME 80.9 fL CALC (80.0-100.0); MEAN CORPUSCULAR HGB 25.2 pG CALC (26.0-32.0); MEAN CORPUSCULAR HGB CONC 31.2 g/L CALC (32.0-36.0); NEUT# 6.41 thou/uL (2.00-7.15); RED BLOOD COUNT 3.61 mill/uL (4.20-5.60); RED CELL DISTRI WIDTH 14.4 % (11.5-15.5)
[2018-11-24 05:27] LABS: ALBUMIN 3.1 g/dL (3.2-5.0); ALKALINE PHOSPHATASE 88 u/l (38-126); ANION GAP 12 (6-22 (CALC)); BILIRUBIN, TOTAL 0.6 mg/dL (0.0-1.4); BUN 17 mg/dL (8-23); BUN/CREATININE RATIO 27 (12-20 (CALC)); CARBON DIOXIDE 28 mmol/l (22-30); CHLORIDE 102 mmol/l (95-108); CREATININE 0.6 mg/dL (0.5-1.0); GFR > 60 ML/MIN (>=60 (CALC)); GFR FOR AFR.AMER. > 60 ML/MIN (>=60 (CALC)); SGOT/AST 20 u/l (9-36); SODIUM 139 mmol/l (137-146); TOTAL PROTEIN 5.8 g/dL (6.3-8.2)
--- NOTE | 2018-11-24 07:05 | NUR ---
REPORT RECEIVED FROM VALERIANO BIGGS;PT OOB RESTING IN RECLINER,A&O X3;INTRODUCED SELF TO PT AND POC DISCUSSED;PT DENIES ANY CURRENT PAIN OR NEEDS;RESPIRATIONS EVEN AND UNLABORED ON RA;IV FLUIDS CONTINUE TO INFUSE TO POORNIMA WITH EASE;PT ENCOURAGED TO CALL FOR ASSISTANCE IF NEEDED;FALL PRECAUTIONS IN PLACE WITH CALL LIGHT IN REACH;WILL CONTINUE TO MONITOR
--- NOTE | 2018-11-24 08:05 | NUR ---
PT OOB RESTING IN RECLINER WATCHING TV,A&O X3;VS OBTAINED AND ASSESSMENT COMPLETED;PT DENIES ANY CURRENT PAIN OR DISCOMFORTS,PAIN SCALE AND REPORTING RE-EDUCATED;RESPIRATIONS REMAIN EVEN AND UNLABORED ON RA,CLEAR/DIMINISHED LUNG SOUNDS NOTED;ABDOMEN DISTENDED/SOFT ON PALPATION AND ACTIVE IN ALL 4 QUADRANTS;WEAK PEDAL PULSES;#22G TO LEFT UPPER ARM INFUSING NS @ 60ML/HR PER ORDER;BRUISING REMAINS TO LEFT EYE AND HEALING WOUND TO LEFT UPPER FOREHEAD,DRESSING TO RLE CDI;CONTACT PRECAUTIONS REMAIN IN PLACE FOR HX OF MRSA;PT DENIES ANY ADDITIONAL NEEDS AT THIS TIME AND IS ENCOURAGED TO CALL FOR ASSISTANCE IF NEEDED;FALL PRECAUTIONS IN PLACE WITH CALL LIGHT IN REACH;WILL CONTINUE TO MONITOR
[2018-11-24 08:07] VITALS: BP 146/79
--- NOTE | 2018-11-24 08:20 | NUR ---
AT BEDSIDE DISCUSSING POC.
--- NOTE | 2018-11-24 09:34 | NUR ---
PHYSICAL THERAPY AT BEDSIDE WORKING WITH PT.
--- NOTE | 2018-11-24 11:30 | NUR ---
PT OOB RESTING IN RECLINER;RESPIRATIONS REMAIN EVEN AND UNLABORED ON RA;PT DENIES ANY CURRENT PAIN OR NEEDS;IV FLUIDS CONTINUE TO INFUSE TO POORNIMA WITH EASE;ACCUCHECK 296, PT COVERED WITH SLIDING SCALE NOVOLOG PER ORDER;PT ENCOURAGED TO CALL FOR ASSISTANCE IF NEEDED;CALL LIGHT IN REACH;WILL CONTINUE TO MONITOR
--- NOTE | 2018-11-24 15:35 | NUR ---
PT OOB RESTING IN RECLINER WATCHING TV;PT DENIES ANY CURRENT PAIN OR NEEDS;RESPIRATIONS EVEN AND UNLABORED ON RA;IV FLUIDS CONTINUE TO INFUSE TO LEFT UPPER ARM WITH EASE;PT INSTRUCTED TO CALL FOR ASSISTANCE IF NEEDED;FALL PRECAUTIONS IN PLACE WITH CALL LIGHT IN REACH;WILL CONTINUE TO MONITOR
[2018-11-24 16:00] VITALS: BP 152/63
--- NOTE | 2018-11-24 19:53 | NUR ---
PATIENT SITTING UP IN THE RECLINER WATCHING TV AT THIS TIME. AWAKE ALERT AND ORIENTEDX3. PATIENT WITH LAC ABOVE LEFT EYE-SCABBED AND VICK. ECCYMOSIS NOTED TO LEFT SIDE OF THE FACE AND AROUND THE EYE FROM FALL LAST WEEK. PATIENT IS ON CONTACT PRECAUTIONS FOR HX OF MRSA-AWAITING FINAL REPORT ON RECENT SWAB. PATIENT WITH DRESSING TO RIGHT LE INTACT. SOME SWELLING NOTED TO BLE. PULSES ARE PALPABLE. PATIENT STATES THAT SHE DID HAVE BM TODAY AND HAVING NO DIFFICULTY WITH URINATION. IV SITE TO LEFT UPPER ARM INTACT WITH IVF PATENT AND INFUSING AT 60CC/HR. SITE IS HEALTHY AT THIS TIME. LUNGS ARE CLEAR. ABD IS SOFT WITH BS+. SAFETY PRECAUTIONS REINFORCED. CALL LIGHT IN REACH, WILL CONT TO MONITOR.
[2018-11-24 21:00] VITALS: BP 146/68
--- NOTE | 2018-11-24 23:30 | NUR ---
PATIENT RESTING IN BED WITH EYES CLOSED-APPEARS SLEEPING AT THIS TIME. RESP ARE EVEN AND UNLABORED. IVF PATENT AND INFUSING AT 60CC/HR VIA LEFT UPPER ARM SITE. SITE REMAINS HEALTHY. CALL LIGHT IN REACH. WILL CONT TO MONITOR.
--- NOTE | 2018-11-25 04:29 | NUR ---
APPEARS SLEEPING AT THIS TIME WITH EYES CLOSED. RESPS ARE EVEN AND U NLABORED. CALL LIGHT IN REACH. WILL CONT TO MONITOR.
[2018-11-25 05:36] VITALS: BP 155/73
[2018-11-25 08:00] VITALS: BP 164/65
--- NOTE | 2018-11-25 10:43 | NUR ---
PT UP IN CHAIR AT THIS TIME, ALERT AND ORIENTED. PT PLEASANT, OFFERS NO COMPLAINTS.
[2018-11-25 12:02] LABS: HEMOGLOBIN 10.4 g/dl (12.0-16.0); IMMATURE GRANULOCYTES 0.5 % (0.0-5.0); MEAN CELL VOLUME 82.3 fL CALC (80.0-100.0); MEAN CORPUSCULAR HGB 25.2 pG CALC (26.0-32.0); MEAN CORPUSCULAR HGB CONC 30.6 g/L CALC (32.0-36.0); NEUT# 8.94 thou/uL (2.00-7.15); RED BLOOD COUNT 4.13 mill/uL (4.20-5.60); RED CELL DISTRI WIDTH 14.7 % (11.5-15.5)
--- NOTE | 2018-11-25 12:05 | NUR ---
PT BEFORE, NO CHANGE IN STATUS. NO COMPLAINTS OF PAIN TO FACIAL AREAS.
[2018-11-25 12:25] LABS: ANION GAP 15 (6-22 (CALC)); BUN 15 mg/dL (8-23); BUN/CREATININE RATIO 24 (12-20 (CALC)); CARBON DIOXIDE 25 mmol/l (22-30); CHLORIDE 103 mmol/l (95-108); CREATININE 0.6 mg/dL (0.5-1.0); GFR > 60 ML/MIN (>=60 (CALC)); GFR FOR AFR.AMER. > 60 ML/MIN (>=60 (CALC)); SODIUM 139 mmol/l (137-146)
[2018-11-25 12:26] LABS: POTASSIUM 3.8 mmol/l (3.5-5.1)
[2018-11-25 16:00] VITALS: BP 140/66
--- NOTE | 2018-11-25 16:17 | NUR ---
PT REMAINS IN CHAIR WITHOUT CHANGE IN STATUS.
--- NOTE | 2018-11-25 18:07 | NUR ---
DR MARS HAS BEEN IN TO SEE PT, PLAN IS TO DISCHARGE TO REHAB TOMORROW. PT IN AGREEMENT.
--- NOTE | 2018-11-25 19:00 | NUR ---
REPORT RECEIVED FROM Royal TINSLEY RN; PT SITTING IN CHAIR; NO COMPLAINTS VOICED AT THIS TIME; CALL CULLEN WITHIN REACH; WILL CONTINUE TO MONITOR.
[2018-11-25 20:00] VITALS: BP 156/63
--- NOTE | 2018-11-25 20:30 | NUR ---
PT IN SEMI FOWLERS POSITION; A/O X4; DENIES PAIN; ASSESSMENT COMPLETED; PT ON RA, LUNGS CLEAR THROUGHOUT; DRSG TO RLE CDI; BRUISING/EECYMOSIS NOTED TO LEFT SIDE OF FACE STATUS POST FALL AT HOME; PT MEDICATED WITH SLEEP AID PER REQUEST; SEIZURE PRECAUTIONS IN PLACE; CALL CULLEN WITHIN REACH; WILL CONTINUE TO MONITOR.
--- NOTE | 2018-11-26 00:36 | NUR ---
PT RESTING WITH EYES CLOSED; NO S/SX OF DISTRESS NOTED; CALL CULLEN WITHIN REACH; WILL CONTINUE TO MONITOR.
--- NOTE | 2018-11-26 04:53 | NUR ---
PT RESTING WITH EYES CLOSED; NO S/SX OF DISTRESS NOTED; CALL CULLEN WITHIN REACH; WILL CONTINUE TO MONITOR.
[2018-11-26 05:07] VITALS: BP 139/55
--- NOTE | 2018-11-26 06:26 | NUR ---
CARDINAL PHARMACIST CALLED AND STATED THAT D/T ALLERGY TO PCN AND KEFLEX, PT WILL MORE THAN LIKELY HAVE A REACTION TO ROCEPHIN IV THAT WAS ORDERED BY , AND THAT LEVAQUIN WILL NOT BE A OPTION D/T ALLERGY TO CIPRO; CALLED PLACED TO DR. MARS TO INFORM HIM; STATES TO CONSULT [facility];
--- NOTE | 2018-11-26 07:00 | NUR ---
REPORT RECEIVED FROM VALERIANO HO;PT APPEARS TO BE SLEEPING IN LEFT SIDE LAYING POSITION;RESPIRATIONS APPEAR EVEN AND UNLABORED ON RA;NO S/S OF DISTRESS NOTED;FALL PRECAUTIONS IN PLACE WITH BED IN THE LOWEST POSITION AND CALL LIGHT IN REACH;WILL CONTINUE TO MONITOR
[2018-11-26 08:15] VITALS: BP 139/63
--- NOTE | 2018-11-26 08:15 | NUR ---
PT OOB RESTING IN RECLINER WATCHING TV;VS OBTAINED AND ASSESSMENT COMPLETED;PT DENIES ANY CURRENT PAIN OR DISCOMFORTS;RESPIRATIONS EVEN AND UNLABORED ON RA,CLEAR/DIMINISHED LUNG SOUNDS NOTED;ABDOMEN DISTENDED/SOFT ON PALPATION AND ACTIVE IN ALL 4 QUADRANTS;WEAK PEDAL PULSES;#22G TO LEFT UPPER ARM FLUSHED AND PATENT,SITE APPEARS HEALTHY;ACCUCHECK WAS 106, NO COVERAGE NEEDED;LACERATION TO LEFT FOREHEAD AND WOUND TO RLE NOTED;DRESSING REMOVED FROM RLE, WOUND IS NOW CLOSED;PHOTOGRAPHS OBTAINED;PT DENIES ANY ADDITIONAL NEEDS AT THIS TIME AND IS ENCOURAGED TO CALL FOR ASSISTANCE IF NEEDED;FALL PRECAUTIONS IN PLACE WITH CALL LIGHT IN REACH;WILL CONTINUE TO MONITOR
--- NOTE | 2018-11-26 08:45 | NUR ---
AT BEDSIDE DISCUSSING POC.
--- NOTE | 2018-11-26 09:17 | NUR ---
PHYSICAL THERAPY AT BEDSIDE WORKING WITH PATIENT.
--- NOTE | 2018-11-26 11:25 | NUR ---
PT OOB RESTING IN RECLINER,DROWSY;RESPIRATIONS EVEN AND UNLABORED ON RA;PT DENIES ANY CURRENT PAIN OR NEEDS;ACCUCHECK 243, PT COVERED WITH SLIDING SCALE NOVOLOG PER ORDER;IV SITE TO POORNIMA REMAINS PATENT;ASSESMENT REMAINS UNCHANGED AT THIS TIME;ENCOURAGED TO CALL FOR ASSISTANCE IF NEEDED;FALL PRECAUTIONS IN PLACE WITH CALL LIGHT IN REACH;WILL CONTINUE TO MONITOR
--- NOTE | 2018-11-26 15:40 | NUR ---
PT APPEARS TO BE SLEEPING IN SUPINE POSITION;RESPIRATIONS EVEN AND UNLABORED ON RA;NO S/S OF DISTRESS NOTED;IV SITE TO LEFT UPPER ARM PATENT;ALL SAFETY PRECAUTIONS REINFORCED INCLUDING FALL AND SEIZURE PRECAUTIONS;BED IN THE LOWEST POSITION WITH CALL LIGHT IN REACH;WILL CONTINUE TO MONITOR
[2018-11-26 16:00] VITALS: BP 142/62
--- NOTE | 2018-11-26 17:00 | NUR ---
PT REPORTS WEAKNESS AND "NOT FEELING MYSELF", TEMP CURRENTLY 98.6;FRESH WATER PROVIDED AT THIS TIME;PT DENIES ANY ADDITIONAL NEEDS AND REQUESTS "SLEEP";PT ENCOURAGED TO CALL FOR ASSISTANCE IF NEEDED;CALL LIGHT IN [facility];WILL CONTINUE TO MONITOR
--- NOTE | 2018-11-26 17:37 | NUR ---
TREATMENT NOTE DOCUMENTED IN WRONG CHART AND MARKED UNDONE. THIS NOTE WRITTEN BY EVALUATING P.T. FOR TX DONE BY RUBEN DOLAN PTA. PATIENT WAS OOB IN CHAIR, IV BEEPING, NURSING NOTIFIED AND ADDRESSED. PATIENT PERFORMED SITTING LE AND UE EX ACTIVITY X 10-20 REPS. PATIENT TRANSFERRED TO BED WITH CGA AND VERBAL CUES. STOOD FROM CHAIR AND BED WITH MIN/MOD A. SHE AMBULATED 2 X 12 FEET WITH CGA/RW AND V.C.'S TO STAND TALL. SHE RETURNED TO CHAIR AND POSITIONED WITH CALL CULLEN/TRAY IN REACH. NSG AWARE.
[2018-11-26 19:15] VITALS: BP 151/77
--- NOTE | 2018-11-26 19:20 | NUR ---
PT IN BED SLEEPING AT THIS TIME. NO S/O DISTRESS NOTED. CALL LIGHT AT BEDSIDE.
--- NOTE | 2018-11-26 22:05 | NUR ---
PT ASSESSED AND MEDICATED ORDERS PROVIDE. PT LUNG SOUNDS DIM, REPORTS NORMAL SOFT STOOL TODAY, DENIES ANY BURNING OR DIFFICULTY URINATING, ACTIVE BOWEL SOUNDS NON-TENDER, 2+PITTING EDEMA TO BLE. DENIES ANY NEEDS AT THIS TIME, PT ASSISTED IN REPOSITIONING AT THIS TIME. CALL LIGHT AT BEDSIDE.
[2018-11-27 04:02] VITALS: BP 130/69
--- NOTE | 2018-11-27 06:13 | NUR ---
PT MEDICATED ORDERS PROVIDE. PT WAS SLEEPING, BUT AWOKE TO MY VOICE. DENIES ANY NEEDS AT THIS TIME. PT REFUSED COOL PACK TO LEFT SIDE OF BRUISING AND EDEMA TO FACE. CALL LIGHT AT SIDE AND PT ENCOURAGED TO CALL IF ANY NEEDS ARISE. PT ASSISTED IN REPOSITIONING.
[2018-11-27 07:43] VITALS: BP 129/57
--- NOTE | 2018-11-27 09:49 | NUR ---
PT C/O PAIN TO L WRIST. RADIOLOGY AT BEDSIDE FOR XRAY.
--- NOTE | 2018-11-27 10:17 | NUR ---
PT RESTING IN RECLINER AT BEDSIDE WITH EYES CLOSED, RESP EVEN AND UNLABORED. NO SIGNS OF DISTRESS NOTED.
[2018-11-27 15:07] VITALS: BP 133/63
[2018-11-27 18:57] VITALS: BP 112/53
--- NOTE | 2018-11-27 21:10 | NUR ---
PT MEDICATED ORDER PROVIDE AND FOR PAIN IN LEFT ELBOW AND HAND. HAND HAS 1+EDEMA, SLIGHTLY REDDENED AND IS WARM TO THE TOUCH, ARM ELEVATED, OFFERED COMPRESS FOR COMFORT/DENIED. BRUISING AND EDEMA TO LEFT SIDE OF FACE AND L.EYE, OFFERED COOL COMPRESS/ICE PACK TO LEFT SIDE OF FACE/DENIED. 2+EDEMA TO BLE, SMALL SCABBED SCRATCHES TO BLE, STRONG PEDAL PULSES PALPATED. ABD SOFT NON-TENDER W/ACTIVE BOWEL SOUNDS, PT REPORTS SMALL STOOL THIS AM. REPORTS URINE INCONTINENCE AND DIFFICULTY AMBULATING W/OUT HELP AND W/LIMITED USE OF LEFT ARM DUE TO PAIN. PT MEDICATED FOR PAIN REPORTED 6/10 AT THIS TIME. LIGHTS AND TV TURNED OFF AND DOOR CRACKED/PER REQUEST. PT HAS CALL LIGHT IN HAND AND HAS BEEN ENCOURAGED TO CALL IF ANY AASSISTANCE NEEDED. ASSISTED W/PO FLUIDS AT THIS TIME.
--- NOTE | 2018-11-28 00:47 | NUR ---
PT IS SLEEPING AT THIS TIME. NO S/O DISTRESS NOTED. CALL LIGHT IS NEXT TO HAND. WILL CONTINUE TO MONITOR.
--- NOTE | 2018-11-28 03:30 | NUR ---
PT IS SLEEPING SOUNDLY AT THIS TIME. NO S/O DISTRESS. CALL LIGHT IS NEXT TO PT HAND. 02NC IN PLACE.
[2018-11-28 04:40] VITALS: BP 125/56
--- NOTE | 2018-11-28 05:00 | NUR ---
AIDES IN TO BATHE PT AND CHANGE BEDDING, PT C/O PAIN GENERALIZED ALL OVER AND "MAINLY IN ARMS AND LEGS FEELING LIKE NERVE ENDINGS." PT MEDICATED FOR PAIN AT THIS TIME AND PT ENCOURAGED TO CALL IF ANY OTHER NEEDS ARISE. POC DISCUSSED W/PT.
--- NOTE | 2018-11-28 05:55 | NUR ---
PT IS SLEEPING, DID NOT AWAKE TO MY ENTERING ROOM. WILL CONTINUE TO MONITOR FOR PAIN.
--- NOTE | 2018-11-28 08:30 | NUR ---
PT SITTING ON SIDE OF BED EATING BREAKFAST, NO SIGNS OF DISTRESS NOTED, RESP EVEN AND UNLABORED. PT ALERT AND ORIENTED X3. DISCUSS POC, POSSIBLE D/C TODAY. IV ROCEHPIN INITIATED. ASSESSMENT COMPLETED. CALL LIGHT IN REACH,CONTINUE TO MONITOR.
[2018-11-28 08:36] VITALS: BP 133/53
[2018-11-28 08:39] VITALS: BP 133/53
--- NOTE | 2018-11-28 10:00 | NUR ---
AT BEDSIDE, DISCUSSED PLANS FOR DISCHARGE.
[2018-11-28] MEDS ORDERED: ROCEPHIN 1 GM1 GM IV (10:09)
--- NOTE | 2018-11-28 10:55 | NUR ---
GRANDDAUGHTER ARRIVED TO BEDSIDE, CONCERNED OF PT BEING RETURNED TO [facility]. NOTIFIED CASE MANAGEMENT TO DISCUSS POC.
--- NOTE | 2018-11-28 11:01 | NUR ---
CASEMANAGEMENT TO BEDSIDE TO DISCUSS PLANS
--- NOTE | 2018-11-28 11:13 | NUR ---
Discharge instructions given. Patient verbalizes understanding of same. Discharged in stable condition via Wheelchair to [facility] with staff. All belongings sent with pt.
== END 2018-11-28 11:15 | disposition home health service (06) | DRG 605 ==
LOC: MS2 16:19
PROVIDERS: ADMIT Internal Medicine Geriatric Medicine; ATTEND Internal Medicine Geriatric Medicine
DX: S00.83XA Contusion of other part of head, initial encounter (principal); N39.0 Urinary tract infection, site not specified; E11.40 Type 2 diabetes mellitus with diabetic neuropathy, unspecified; I25.10 Atherosclerotic heart disease of native coronary artery without angina pectoris; I10 Essential (primary) hypertension; E78.5 Hyperlipidemia, unspecified; E03.9 Hypothyroidism, unspecified; M19.90 Unspecified osteoarthritis, unspecified site; F41.9 Anxiety disorder, unspecified; H54.7 Unspecified visual loss; S79.919A Unspecified injury of unspecified hip, initial encounter; S79.929A Unspecified injury of unspecified thigh, initial encounter; S49.92XA Unspecified injury of left shoulder and upper arm, initial encounter; S49.91XA Unspecified injury of right shoulder and upper arm, initial encounter; R60.0 Localized edema; B96.20 Unspecified Escherichia coli [E. coli] as the cause of diseases classified elsewhere; W18.30XA Fall on same level, unspecified, initial encounter; Y92.099 Unspecified place in other non-institutional residence as the place of occurrence of the external cause; Z91.81 History of falling

== ENCOUNTER 2020-08-14 09:42 | Observation (INO) | payer MEDICARE, BC ==
[~2020-08-14] VITALS: Ht 157.5 cm; Wt 98.1 kg
[~2020-08-14 09:42] MED LIST changes: +ROCEPHIN 1 GM1 GM IV
--- NOTE | 2020-08-14 09:42 | NUR ---
PT TO ROOM 15 VIA EMS. BEDSIDE TRAIGE COMPLTED
--- NOTE | 2020-08-14 09:50 | NUR ---
PATIENT RECIEVED AND SETTLED TO ROOM. PLAN OF CARE REVIEWED.
[2020-08-14 10:23] LABS: HEMATOCRIT 35.3 % (37.0-47.0); HEMOGLOBIN 11.2 g/dl (12.0-16.0); IMMATURE GRANULOCYTES 0.3 % (0.0-5.0); MEAN CELL VOLUME 84.4 fL CALC (80.0-100.0); MEAN CORPUSCULAR HGB 26.8 pG CALC (26.0-32.0); MEAN CORPUSCULAR HGB CONC 31.7 g/dL CAL (32.0-36.0); NEUT# 4.82 thou/uL (2.00-7.15); RED BLOOD COUNT 4.18 mill/uL (4.20-5.60); RED CELL DISTRI WIDTH 14.9 % (11.5-15.5)
--- NOTE | 2020-08-14 10:43 | NUR ---
PT RESTING IN BED. NO DISTRESS NOTED. CALL LIGHT WITHIN REACH.
[2020-08-14] MEDS ORDERED: CLOPIDOGREL75 MG PO (10:45)
[2020-08-14 10:48] LABS: ALKALINE PHOSPHATASE 87 u/l (38-126); BILIRUBIN, TOTAL 0.8 mg/dL (0.0-1.4); BUN 26 mg/dL (8-23); BUN/CREATININE RATIO 36 (12-20 (CALC)); CARBON DIOXIDE 26 mmol/l (22-30); CHLORIDE 97 mmol/l (95-108); CREATININE 0.7 mg/dL (0.5-1.0); GFR > 60 ML/MIN (>=60 (CALC)); GFR FOR AFR.AMER. > 60 ML/MIN (>=60 (CALC)); SGOT/AST 30 u/l (9-36); SODIUM 133 mmol/l (137-146)
[2020-08-14 10:51] LABS: ALBUMIN 3.9 g/dL (3.2-5.0); ANION GAP 15 (6-22 (CALC)); POTASSIUM 4.9 mmol/l (3.5-5.1); TOTAL PROTEIN 7.1 g/dL (6.3-8.2)
[2020-08-14 10:56] LABS: ACT PARTIAL THROMBO TIME 22.6 SECONDS (20.0-32.5); PROTHROMBIN TIME 10.1 SECONDS (9.0-12.5)
--- NOTE | 2020-08-14 11:40 | NUR ---
STRAIGHT CATH COMPLETED FOR URINE SPECIMEN FOLLOWING STERILE TECHNIQUE. PATIENT TOLERATED WELL.
[2020-08-14 12:00] LABS: URINE BILIRUBIN - DIPSTICK NEGATIVE (NEGATIVE); URINE BLOOD DIPSTICK TRACE-INTACT (NEGATIVE); URINE COLOR YELLOW; URINE GLUCOSE - DIPSTICK NEGATIVE (NEGATIVE); URINE KETONE NEGATIVE (NEGATIVE); URINE LEUK ESTERASE NEGATIVE (NEGATIVE); URINE PH 5.5 (4.5-8.0); URINE PROTEIN - DIPSTICK 30 mg/dL (NEG-TRACE); URINE UROBILINOGEN - DIPSTICK 0.2 E.U./dL (0.2)
[2020-08-14 12:02] LABS: URINE NITRITE - DIPSTICK POSITIVE (Negative)
[2020-08-14 12:03] LABS: URINE RBC 0-2 RBC/hpf (0-5)
[2020-08-14 12:04] LABS: URINE BACTERIA MANY hpf; URINE EPITHELIAL CELLS FEW EPI/hpf (0-FEW); URINE MUCUS MANY hpf (NONE-FEW); URINE WBC 0-2 WBC/hpf (0-5)
--- NOTE | 2020-08-14 12:39 | NUR ---
PT IN NO DISTRESS. CALL LIGHT WITHIN REACH. STABLE ON MONITOR. IV MEDS INFUSING WITHOUT DIFFICULTY.
--- NOTE | 2020-08-14 13:42 | NUR ---
PATIENT RESTING QUIETLY. POSITIONED FOR COMFORT.
--- NOTE | 2020-08-14 15:10 | NUR ---
BED CHANGE AND CLEAN UP FROM URINE INCONTINENCE. PURE WICK APPLIED
--- NOTE | 2020-08-14 15:50 | NUR ---
COVID SWAB COLLECTED, ISOLATION PRECAUTIONS INITIATED.
--- NOTE | 2020-08-14 16:45 | NUR ---
PT RESTING. NO DISTRESS NOTED. PENDING ADMISSION.
--- NOTE | 2020-08-14 17:20 | NUR ---
report to recieving nurse in SBAR format.
--- NOTE | 2020-08-14 17:26 | NUR ---
PATIENT ARRIVED UP ON UNIT AT THIS TIME. PATIENT ALERT AND ORIENTED X 3. PATIENT TRANSFERED TO BED WITH THREE ASSIST AT THIS TIME. PATIENT STATES HER PAIN LEVEL IS A 3 AT THIS TIME. PATIENT ARRIVED WITH A PURWICK IN PLACE. IV PATIENT AT THIS TIME. PATIENT ORIENTED TO ROOM AND SURROUNDINGS AT THIS TIME PATIENT VERBALIZES UNDERSTANDING OF ROOM AND SAFETY. PATIENT ADVISED TO CALL OUT FOR NURSE IF PATIENT NEEDS TO GET UP. 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 SIDERAILS ARE UP CALL LIGHT WITHIN REACH AT THIS TIME. PATIENT STATES SHE DOES HAVE A PACEMAKER AND HEART SOUNDS NORMAL AT THIS TIME.
[2020-08-14 19:00] VITALS: BP 112/67
--- NOTE | 2020-08-14 20:05 | NUR ---
PHYSICAL ASSESMENT COMPLETE. PT CURRENTLY DENIES PAIN OR DISCOMFORT. SCHEDULED MEDICATIONS AND PRN MEDICATION ADMINISTERED, SEE E-MAR. PT DENIES ANY NEEDS AT THIS TIME. PLAN OF CARE REVIEWED, PT DENIES QUESTIONS, VERBALIZES UNDERSTANDING. ITEMS WITHIN REACH, BED LOCKED IN LOW POSITION W/ BEDRAILS UP X2. CALL CULLEN WITHIN REACH, AGREES TO CALL PRN.
--- NOTE | 2020-08-15 00:04 | NUR ---
PT LAYING IN BED WITH EYES CLOSED, APPEARS TO BE SLEEPING, APPEARS COMFORTABLE AND IN NO DISTRESS. RESPIRATIONS REGULAR AND UNLABORED. ITEMS REMAIN WITHIN REACH, CALL CULLEN REMAINS WITHIN REACH. BED REMAINS LOCKED AND IN LOW POSITION WITH BEDRAILS UP X2. WILL CONTINUE TO MONITOR.
[2020-08-15 04:00] VITALS: BP 129/71
--- NOTE | 2020-08-15 04:18 | NUR ---
PT RESTING IN BED, NO SIGNS OF DISTRESS NOTED, RESP EVEN AND UNLABORED. PT VOICES NO NEEDS OR COMPLAINTS AT THIS TIME. CALL LIGHT IN REACH, CONTINUE TO MONITOR.
[2020-08-15 05:54] LABS: HEMATOCRIT 33.5 % (37.0-47.0); HEMOGLOBIN 10.9 g/dl (12.0-16.0); IMMATURE GRANULOCYTES 0.3 % (0.0-5.0); MEAN CORPUSCULAR HGB 27.3 pG CALC (26.0-32.0); MEAN CORPUSCULAR HGB CONC 32.5 g/dL CAL (32.0-36.0); NEUT# 5.19 thou/uL (2.00-7.15); RED BLOOD COUNT 3.99 mill/uL (4.20-5.60)
[2020-08-15 06:25] LABS: ALBUMIN 3.3 g/dL (3.2-5.0); ALKALINE PHOSPHATASE 76 u/l (38-126); ANION GAP 12 (6-22 (CALC)); BILIRUBIN, TOTAL 0.4 mg/dL (0.0-1.4); BUN 21 mg/dL (8-23); BUN/CREATININE RATIO 28 (12-20 (CALC)); CARBON DIOXIDE 25 mmol/l (22-30); CHLORIDE 101 mmol/l (95-108); CREATININE 0.7 mg/dL (0.5-1.0); GFR > 60 ML/MIN (>=60 (CALC)); GFR FOR AFR.AMER. > 60 ML/MIN (>=60 (CALC)); MAGNESIUM 1.4 mg/dL (1.6-2.3); SGOT/AST 25 u/l (9-36); SODIUM 135 mmol/l (137-146)
[2020-08-15 07:20] VITALS: BP 140/41
--- NOTE | 2020-08-15 07:20 | NUR ---
PATIENT LAYING IN BED RESTING WITH EYES OPEN EVEN AND UNLABORED RESPIRATIONS. ALERT AND ORIENTED AT THIS TIME. PURWICK PLACE AND DRAING CLEAR YELLOW URINE AT THIS TIME. BUTTOCKS EXAMIED AND FOUND TO BE LINDSAY AND BARRIER CREAM APPLIED. UNDER RIGHT BREAST IS A LARGE HEALING BRUISING AREA. PATIENT [facility]. PATIENT STATES HER PAIN IS A 3 LONG SHE STAYS STILL. PATIENT SAFETY MEASURES ARE IN PLACE AND TO INCLUDE SIDERAILS UP X 2 CALL LIGHT WITHIN REACH.
--- NOTE | 2020-08-15 10:00 | NUR ---
PATIENT C/0 PAIN IN LOWER BACK AND STATES IT IS A "7" ON THE PAIN SCALE OF 0-10. PATIENT MEDICATED AT THIS TIME WITH 15MG OF TORADOL IV AND WILL CONTINUE TO MONITORED.
--- NOTE | 2020-08-15 10:30 | NUR ---
PATIENT RESTING IN BED AT THIS TIME AND STATES THAT HER PAIN LEVEL WENT DOWN TO A 4 FROM 7 AND THAT THE TORODOL WORKED. PATIENT SAFETY MEASURES ARE IN PLACE CALL LIGHT WITHIN REACH.
--- NOTE | 2020-08-15 11:30 | NUR ---
PROVIDER GONZALEZ CURIEL AWARE THAT PATIENT DOES NOT HAVE SLIDING SCALE COVERAGE ORDERED AT THIS TIME. PROVIDER STATED HE IS AWARE AND JUST CONTINUE TO MONITOR. PROVIDER STATED THAT SHE IS ON PREDINSONE THAT WOULD INCREASE HER BLOOD GLUCOSE. AT THIS TIME PROVIDER STATED TO CONTINUE TO MONITOR.
--- NOTE | 2020-08-15 11:54 | NUR ---
PATIENT RESTING IN BED AT THIS TIME DENIES ALL NEEDS AND ALL SAFETY MEASURES AE IN PLACE TO INCLUDE SIDERAILS UP X 2 CALL LIGHT WITHIN REACH.
--- NOTE | 2020-08-15 15:30 | NUR ---
PATIENT RESTING IN BED AT THIS TIME. STATES SHE HAS NO PAIN CURRENTL. PATIENT DENIES ANY NEEDS. ALL SAFETY MEASURES ARE IN PLACE SIDERAIL UP X 2 CALL LIGHT AT BEDSIDE. PATIENT BOTTOM AND UNDER BREAST REMAIN LINDSAY AND BARRIER CREAM APPLIED AT THIS TIME.
[2020-08-15 15:43] VITALS: BP 126/75
--- NOTE | 2020-08-15 17:13 | NUR ---
PATIENT REQUESTING PAIN MEDICATION AT THIS TIME FOR STATED PAIN LEVEL OF 5 OUT OF 0-10. PATIENT GIVEN TRAMADOL 50MG PO AT THIS TIME.
[2020-08-15 19:00] VITALS: BP 145/79
--- NOTE | 2020-08-15 21:40 | NUR ---
PT MEDICATED ORDERS PROVIDE AND ASSESSMENT COMPLETED AT THIS TIME. NO S/O DISTRESS AT THIS TIME. PT DENIES PAIN AT THIS TIME. ASSISTED PT REPOSITION IN THE BED AND TURN LIGHTS AND TV OFF. CALL LIGHT IS IN PT'S HAND.
--- NOTE | 2020-08-15 23:50 | NUR ---
PT APPEARS TO BE SLEEPING, NO S/O DISTRESS NOTED. CALL LIGHT W/IN REACH. LIGHTS, TV ARE OFF AND HOB DOWN.
[2020-08-16 04:00] VITALS: BP 118/51
--- NOTE | 2020-08-16 05:04 | NUR ---
PT SLEEPING, NO S/O DISTRESS NOTED.
[2020-08-16 05:40] LABS: HEMATOCRIT 31.6 % (37.0-47.0); MEAN CELL VOLUME 83.6 fL CALC (80.0-100.0); MEAN CORPUSCULAR HGB 26.5 pG CALC (26.0-32.0); MEAN CORPUSCULAR HGB CONC 31.6 g/dL CAL (32.0-36.0); RED BLOOD COUNT 3.78 mill/uL (4.20-5.60); RED CELL DISTRI WIDTH 14.9 % (11.5-15.5)
--- NOTE | 2020-08-16 06:04 | NUR ---
PT MEDICATED ORDERS PROVIDE. PT IS IN LOW FOWLERS READING EMAIL ON PHONE WITH LIGHTS ON. DENIES ANY NEEDS AT THIS TIME.
[2020-08-16 06:13] LABS: ANION GAP 12 (6-22 (CALC)); BUN 23 mg/dL (8-23); BUN/CREATININE RATIO 28 (12-20 (CALC)); CARBON DIOXIDE 24 mmol/l (22-30); CHLORIDE 100 mmol/l (95-108); CREATININE 0.9 mg/dL (0.5-1.0); GFR 59 ML/MIN (>=60 (CALC)); GFR FOR AFR.AMER. > 60 ML/MIN (>=60 (CALC)); POTASSIUM 4.6 mmol/l (3.5-5.1); SODIUM 132 mmol/l (137-146)
--- NOTE | 2020-08-16 06:45 | NUR ---
PATIENT ACCU CHECK WAS 163 AND PATIENT REFUSED TO TAKE SLIDING SCALE HUMALOG AT THIS TIME. EDUCATED ON BENEFITS OF MEDICATION AND PATIENT STATED SHE IS REFUSING THE 1 UNIT AT THIS TIME
[2020-08-16 07:10] VITALS: BP 107/75
--- NOTE | 2020-08-16 07:10 | NUR ---
PATIENT IN BED AT THIS TIME ALERT AND ORIENTED. PATIENT DENIES ANY PAIN CURRENTLY AND STATED SHE SLEPT WELL. PATIENT SAFETY MEASURES ARE IN PLACE CALL LIGHT WITHIN REACH. ZOOGLER DONE AT THIS TIME SEE INTERVENTIONS. PATIENT IN STABLE CONDITION AT THIS TIME.
[2020-08-16 09:20] VITALS: BP 107/75
--- NOTE | 2020-08-16 09:30 | NUR ---
PATIENTS IV IN RH HAND INFILTRATED AT THIS TIME IV MEDICATION ROCEPHIN STOPPED AT THIS TIME IV CANNULA REMOVED AND COOL COMPRESS APPLIED. IV SITE DRESSED WITH 2X2 AND COBAND AT THIS TIME. PROVIDER MADE AWARE AND OKAY FOR SITE TO REMAIN OUT AND PO ANTIBIOTIC GIVEN.
--- NOTE | 2020-08-16 09:58 | NUR ---
PT. NOTE Patient was supine as entered room, patient agreed to participate in therapy session, stated she was a little fatigued and could perform bed exercises. Patient executed ankle pumps x 20, quad sets x 20, heel slides x 20, and hip abduction (MIN A), all exercises performed bilaterally. Tray table and call batista by patient side. [facility] remains 9
[2020-08-16] MEDS ORDERED: BACTRIM DS1 TAB PO (11:08)
[2020-08-16] MEDS ORDERED: FLEXERIL5 MG PO (11:08)
[2020-08-16] MEDS ORDERED: PREDNISONE10 MG PO (11:08)
--- NOTE | 2020-08-16 11:53 | NUR ---
PATIENT D/C AT THIS TIME PATIENT VERBALIZES UNDERSTANDING OF D/C INSTRUCTIONS.THIS NURSE ALSO CONTACTED [employer] DIRECTOR OF [employer] AND GAVE REPORT AND SHE STATED SHE WILL BE ON HER WAY TO [facility].
--- NOTE | 2020-08-16 12:02 | NUR ---
Discharge instructions given. Patient verbalizes understanding of same. Discharged in stable condition via [facility] with *Other. All belongings sent with pt.
== END 2020-08-16 12:11 | disposition home health service (06) ==
LOC: ED 09:42 → ED-I 10:27 → ED 16:00 → MS2 16:01
PROVIDERS: Nurse Practitioner; Student in an Organized Health Care Education/Training Program; ADMIT Internal Medicine; ATTEND Internal Medicine
DX: N39.0 Urinary tract infection, site not specified (principal); M54.40 Lumbago with sciatica, unspecified side; E11.40 Type 2 diabetes mellitus with diabetic neuropathy, unspecified; I10 Essential (primary) hypertension; J44.9 Chronic obstructive pulmonary disease, unspecified; E03.9 Hypothyroidism, unspecified; K21.9 Gastro-esophageal reflux disease without esophagitis; G47.30 Sleep apnea, unspecified; B96.89 Other specified bacterial agents as the cause of diseases classified elsewhere; Z79.4 Long term (current) use of insulin; Z95.5 Presence of coronary angioplasty implant and graft; Z87.440 Personal history of urinary (tract) infections; Z95.0 Presence of cardiac pacemaker; Z20.828 Contact with and (suspected) exposure to other viral communicable diseases
CPT/HCPCS: J1650; Q9967

== ENCOUNTER 2020-10-16 09:04 | Inpatient (IN) | payer MEDICARE, BC ==
[~2020-10-16] VITALS: Ht 157.5 cm; Wt 93.4 kg
[~2020-10-16 09:04] MED LIST changes: +BACTRIM DS1 TAB PO; +CLOPIDOGREL75 MG PO; +FLEXERIL5 MG PO; +PREDNISONE10 MG PO
[2020-10-16 10:12] LABS: HEMATOCRIT 33.3 % (37.0-47.0); HEMOGLOBIN 9.9 g/dl (12.0-16.0); IMMATURE GRANULOCYTES 0.4 % (0.0-5.0); MEAN CELL VOLUME 88.1 fL CALC (80.0-100.0); MEAN CORPUSCULAR HGB 26.2 pG CALC (26.0-32.0); MEAN CORPUSCULAR HGB CONC 29.7 g/dL CAL (32.0-36.0); NEUT# 5.47 thou/uL (2.00-7.15); RED BLOOD COUNT 3.78 mill/uL (4.20-5.60); RED CELL DISTRI WIDTH 15.5 % (11.5-15.5)
[2020-10-16 10:27] LABS: INTERNATIONAL NORMALIZED RATIO 1.1 RATIO (0.7-1.3); PROTHROMBIN TIME 11.2 SECONDS (9.0-12.5)
[2020-10-16 10:30] LABS: ALBUMIN 3.6 g/dL (3.2-5.0); ALKALINE PHOSPHATASE 96 u/l (38-126); BUN 12 mg/dL (8-23); BUN/CREATININE RATIO 20 (12-20 (CALC)); CHLORIDE 103 mmol/l (95-108); CREATININE 0.6 mg/dL (0.5-1.0); GFR > 60 ML/MIN (>=60 (CALC)); GFR FOR AFR.AMER. > 60 ML/MIN (>=60 (CALC)); LIPASE < 10 u/l (23-300); MAGNESIUM 1.5 mg/dL (1.6-2.3); SGOT/AST 23 u/l (9-36); TOTAL PROTEIN 6.5 g/dL (6.3-8.2)
[2020-10-16 10:31] LABS: ANION GAP 8 (6-22 (CALC)); BILIRUBIN, TOTAL 0.6 mg/dL (0.0-1.4); CARBON DIOXIDE 31 mmol/l (22-30); POTASSIUM 3.4 mmol/l (3.5-5.1); SODIUM 139 mmol/l (137-146)
[2020-10-16 11:11] LABS: URINE BILIRUBIN - DIPSTICK NEGATIVE (NEGATIVE); URINE BLOOD DIPSTICK SMALL (NEGATIVE); URINE COLOR YELLOW; URINE GLUCOSE - DIPSTICK NEGATIVE (NEGATIVE); URINE KETONE NEGATIVE (NEGATIVE); URINE LEUK ESTERASE NEGATIVE (NEGATIVE); URINE NITRITE - DIPSTICK NEGATIVE (Negative); URINE PH 6.5 (4.5-8.0); URINE PROTEIN - DIPSTICK 100 mg/dL (NEG-TRACE)
[2020-10-16 11:19] LABS: URINE EPITHELIAL CELLS FEW EPI/hpf (0-FEW); URINE MUCUS MODERATE hpf (NONE-FEW)
[2020-10-16 11:43] LABS: C-REACTIVE PROTEIN 1.1 mg/dL (0-0.9)
[2020-10-16 13:15] VITALS: BP 179/86
[2020-10-16] MEDS ORDERED: COREG6.25 MG PO ×2 (13:37→13:39)
[2020-10-16] MEDS ORDERED: LANTUS100 UNIT/M SC (13:41)
[2020-10-16] MEDS ORDERED: MACRODANTIN50 MG PO (13:42)
[2020-10-16] MEDS ORDERED: ROSUVASTATIN CA10 MG PO (13:43)
[2020-10-16] MEDS ORDERED: SOD CHLORIDE1 G2 PO (13:44)
[2020-10-16 15:00] VITALS: BP 185/93
[2020-10-16 18:36] VITALS: BP 109/66
[2020-10-16 19:45] VITALS: BP 104/71
[2020-10-17 00:04] VITALS: BP 89/50
[2020-10-17 04:00] VITALS: BP 127/55
[2020-10-17 05:46] LABS: HEMATOCRIT 35.1 % (37.0-47.0); HEMOGLOBIN 10.6 g/dl (12.0-16.0); IMMATURE GRANULOCYTES 0.5 % (0.0-5.0); MEAN CELL VOLUME 87.3 fL CALC (80.0-100.0); MEAN CORPUSCULAR HGB 26.4 pG CALC (26.0-32.0); MEAN CORPUSCULAR HGB CONC 30.2 g/dL CAL (32.0-36.0); NEUT# 5.83 thou/uL (2.00-7.15); RED BLOOD COUNT 4.02 mill/uL (4.20-5.60); RED CELL DISTRI WIDTH 15.1 % (11.5-15.5)
[2020-10-17 06:14] LABS: ALBUMIN 3.4 g/dL (3.2-5.0); ALKALINE PHOSPHATASE 92 u/l (38-126); ANION GAP 12 (6-22 (CALC)); BILIRUBIN, TOTAL 0.5 mg/dL (0.0-1.4); BUN 17 mg/dL (8-23); BUN/CREATININE RATIO 25 (12-20 (CALC)); C-REACTIVE PROTEIN 1.5 mg/dL (0-0.9); CARBON DIOXIDE 30 mmol/l (22-30); CHLORIDE 100 mmol/l (95-108); CREATININE 0.7 mg/dL (0.5-1.0); GFR > 60 ML/MIN (>=60 (CALC)); GFR FOR AFR.AMER. > 60 ML/MIN (>=60 (CALC)); POTASSIUM 3.8 mmol/l (3.5-5.1); SGOT/AST 23 u/l (9-36); SODIUM 138 mmol/l (137-146); TOTAL PROTEIN 6.2 g/dL (6.3-8.2)
[2020-10-17 08:29] VITALS: BP 169/73
[2020-10-17 12:00] VITALS: BP 135/62
[2020-10-17 16:00] VITALS: BP 154/69
[2020-10-17 19:00] VITALS: BP 152/74
[2020-10-18] VITALS (7 sets, daily range): BP systolic 109–160; BP diastolic 52–66
[2020-10-18 05:32] LABS: HEMATOCRIT 43.2 % (37.0-47.0); HEMOGLOBIN 12.5 g/dl (12.0-16.0); MEAN CELL VOLUME 91.9 fL CALC (80.0-100.0); MEAN CORPUSCULAR HGB 26.6 pG CALC (26.0-32.0); MEAN CORPUSCULAR HGB CONC 28.9 g/dL CAL (32.0-36.0); RED BLOOD COUNT 4.7 mill/uL (4.20-5.60); RED CELL DISTRI WIDTH 15.7 % (11.5-15.5)
[2020-10-18 05:37] LABS: ANION GAP 9 (6-22 (CALC)); BUN 23 mg/dL (8-23); BUN/CREATININE RATIO 29 (12-20 (CALC)); CARBON DIOXIDE 30 mmol/l (22-30); CHLORIDE 102 mmol/l (95-108); CREATININE 0.8 mg/dL (0.5-1.0); GFR > 60 ML/MIN (>=60 (CALC)); GFR FOR AFR.AMER. > 60 ML/MIN (>=60 (CALC)); MAGNESIUM 1.8 mg/dL (1.6-2.3); POTASSIUM 3.7 mmol/l (3.5-5.1); SODIUM 137 mmol/l (137-146)
[2020-10-19 03:50] VITALS: BP 176/68
[2020-10-19 05:22] LABS: IMMATURE GRANULOCYTES 0.4 % (0.0-5.0); MEAN CELL VOLUME 87.3 fL CALC (80.0-100.0); MEAN CORPUSCULAR HGB 26.9 pG CALC (26.0-32.0); MEAN CORPUSCULAR HGB CONC 30.9 g/dL CAL (32.0-36.0); NEUT# 7.23 thou/uL (2.00-7.15); RED BLOOD COUNT 3.86 mill/uL (4.20-5.60); RED CELL DISTRI WIDTH 15.1 % (11.5-15.5)
[2020-10-19 05:23] LABS: HEMATOCRIT 33.7 % (37.0-47.0); HEMOGLOBIN 10.4 g/dl (12.0-16.0)
[2020-10-19 07:45] VITALS: BP 156/68
[2020-10-19 10:30] VITALS: BP 145/72
[2020-10-19 15:00] VITALS: BP 170/73
[2020-10-19 18:07] LABS: ALBUMIN 3.9 g/dL (3.2-5.0); ALKALINE PHOSPHATASE 89 u/l (38-126); ANION GAP 12 (6-22 (CALC)); BUN 26 mg/dL (8-23); BUN/CREATININE RATIO 36 (12-20 (CALC)); C-REACTIVE PROTEIN 1.5 mg/dL (0-0.9); CARBON DIOXIDE 32 mmol/l (22-30); CHLORIDE 95 mmol/l (95-108); CREATININE 0.7 mg/dL (0.5-1.0); GFR > 60 ML/MIN (>=60 (CALC)); GFR FOR AFR.AMER. > 60 ML/MIN (>=60 (CALC)); SGOT/AST 29 u/l (9-36); SODIUM 135 mmol/l (137-146); TOTAL PROTEIN 6.8 g/dL (6.3-8.2)
[2020-10-19 18:09] LABS: BILIRUBIN, TOTAL 0.8 mg/dL (0.0-1.4)
[2020-10-19 19:00] VITALS: BP 148/72
[2020-10-20 00:15] VITALS: BP 130/63
[2020-10-20 03:45] VITALS: BP 163/69
[2020-10-20 08:00] VITALS: BP 107/73
[2020-10-20 09:42] LABS: HEMOGLOBIN 10.3 g/dl (12.0-16.0); MEAN CELL VOLUME 85.7 fL CALC (80.0-100.0); MEAN CORPUSCULAR HGB 26.8 pG CALC (26.0-32.0); MEAN CORPUSCULAR HGB CONC 31.2 g/dL CAL (32.0-36.0); RED BLOOD COUNT 3.85 mill/uL (4.20-5.60); RED CELL DISTRI WIDTH 15.3 % (11.5-15.5)
[2020-10-20 10:01] LABS: ANION GAP 10 (6-22 (CALC)); BUN 29 mg/dL (8-23); BUN/CREATININE RATIO 34 (12-20 (CALC)); CARBON DIOXIDE 34 mmol/l (22-30); CHLORIDE 96 mmol/l (95-108); CREATININE 0.8 mg/dL (0.5-1.0); GFR > 60 ML/MIN (>=60 (CALC)); GFR FOR AFR.AMER. > 60 ML/MIN (>=60 (CALC)); MAGNESIUM 1.8 mg/dL (1.6-2.3); POTASSIUM 3.5 mmol/l (3.5-5.1); SODIUM 136 mmol/l (137-146)
[2020-10-20 15:00] VITALS: BP 157/68
[2020-10-20 20:00] VITALS: BP 137/63
[2020-10-21] VITALS: BP 143/58
[2020-10-21 04:00] VITALS: BP 150/60
[2020-10-21 05:06] LABS: HEMOGLOBIN 9.7 g/dl (12.0-16.0); IMMATURE GRANULOCYTES 0.6 % (0.0-5.0); MEAN CELL VOLUME 86.1 fL CALC (80.0-100.0); MEAN CORPUSCULAR HGB 26.9 pG CALC (26.0-32.0); MEAN CORPUSCULAR HGB CONC 31.3 g/dL CAL (32.0-36.0); NEUT# 7.08 thou/uL (2.00-7.15); RED BLOOD COUNT 3.6 mill/uL (4.20-5.60); RED CELL DISTRI WIDTH 15.4 % (11.5-15.5)
[2020-10-21 05:32] LABS: ALBUMIN 3.4 g/dL (3.2-5.0); ALKALINE PHOSPHATASE 78 u/l (38-126); ANION GAP 8 (6-22 (CALC)); BILIRUBIN, TOTAL 0.7 mg/dL (0.0-1.4); BUN 34 mg/dL (8-23); BUN/CREATININE RATIO 39 (12-20 (CALC)); C-REACTIVE PROTEIN 0.9 mg/dL (0-0.9); CARBON DIOXIDE 36 mmol/l (22-30); CHLORIDE 97 mmol/l (95-108); CREATININE 0.9 mg/dL (0.5-1.0); GFR 59 ML/MIN (>=60 (CALC)); GFR FOR AFR.AMER. > 60 ML/MIN (>=60 (CALC)); MAGNESIUM 1.9 mg/dL (1.6-2.3); POTASSIUM 3.5 mmol/l (3.5-5.1); SGOT/AST 28 u/l (9-36); SODIUM 137 mmol/l (137-146); TOTAL PROTEIN 6.2 g/dL (6.3-8.2)
[2020-10-21 07:50] VITALS: BP 190/79
[2020-10-21 10:30] VITALS: BP 183/76
[2020-10-21 12:08] LABS: URINE BILIRUBIN - DIPSTICK NEGATIVE (NEGATIVE); URINE BLOOD DIPSTICK NEGATIVE (NEGATIVE); URINE COLOR YELLOW; URINE GLUCOSE - DIPSTICK NEGATIVE (NEGATIVE); URINE KETONE NEGATIVE (NEGATIVE); URINE NITRITE - DIPSTICK NEGATIVE (Negative); URINE PROTEIN - DIPSTICK 30 mg/dL (NEG-TRACE); URINE SPECIFIC GRAVITY 1.025; URINE UROBILINOGEN - DIPSTICK 0.2 E.U./dL (0.2)
[2020-10-21 12:11] LABS: URINE LEUK ESTERASE SMALL (NEGATIVE)
[2020-10-21 12:20] LABS: URINE RBC 0-2 RBC/hpf (0-5)
[2020-10-21 15:00] VITALS: BP 133/56
[2020-10-21 19:00] VITALS: BP 149/61
[2020-10-22] VITALS (17 sets, daily range): BP systolic 119–189; BP diastolic 56–78
[2020-10-22 06:10] LABS: HEMATOCRIT 32.1 % (37.0-47.0); HEMOGLOBIN 9.9 g/dl (12.0-16.0); IMMATURE GRANULOCYTES 0.5 % (0.0-5.0); MEAN CELL VOLUME 86.3 fL CALC (80.0-100.0); MEAN CORPUSCULAR HGB 26.6 pG CALC (26.0-32.0); MEAN CORPUSCULAR HGB CONC 30.8 g/dL CAL (32.0-36.0); NEUT# 6.26 thou/uL (2.00-7.15); RED BLOOD COUNT 3.72 mill/uL (4.20-5.60); RED CELL DISTRI WIDTH 15.5 % (11.5-15.5)
[2020-10-22 06:27] LABS: ALBUMIN 3.6 g/dL (3.2-5.0); ALKALINE PHOSPHATASE 87 u/l (38-126); ANION GAP 9 (6-22 (CALC)); BILIRUBIN, TOTAL 0.8 mg/dL (0.0-1.4); BUN 43 mg/dL (8-23); BUN/CREATININE RATIO 52 (12-20 (CALC)); CARBON DIOXIDE 36 mmol/l (22-30); CHLORIDE 95 mmol/l (95-108); CREATININE 0.8 mg/dL (0.5-1.0); GFR > 60 ML/MIN (>=60 (CALC)); GFR FOR AFR.AMER. > 60 ML/MIN (>=60 (CALC)); POTASSIUM 3.2 mmol/l (3.5-5.1); SGOT/AST 40 u/l (9-36); SODIUM 137 mmol/l (137-146); TOTAL PROTEIN 6.5 g/dL (6.3-8.2)
[2020-10-23] VITALS (16 sets, daily range): BP systolic 96–181; BP diastolic 52–88
[2020-10-23 05:23] LABS: HEMATOCRIT 33.5 % (37.0-47.0); HEMOGLOBIN 10.2 g/dl (12.0-16.0); MEAN CELL VOLUME 86.8 fL CALC (80.0-100.0); MEAN CORPUSCULAR HGB 26.4 pG CALC (26.0-32.0); MEAN CORPUSCULAR HGB CONC 30.4 g/dL CAL (32.0-36.0); RED BLOOD COUNT 3.86 mill/uL (4.20-5.60); RED CELL DISTRI WIDTH 15.4 % (11.5-15.5)
[2020-10-23 05:48] LABS: ANION GAP 9 (6-22 (CALC)); BUN 39 mg/dL (8-23); BUN/CREATININE RATIO 46 (12-20 (CALC)); CARBON DIOXIDE 38 mmol/l (22-30); CHLORIDE 94 mmol/l (95-108); CREATININE 0.9 mg/dL (0.5-1.0); GFR 59 ML/MIN (>=60 (CALC)); GFR FOR AFR.AMER. > 60 ML/MIN (>=60 (CALC)); POTASSIUM 3.4 mmol/l (3.5-5.1); SODIUM 138 mmol/l (137-146)
[2020-10-24] VITALS (12 sets, daily range): BP systolic 112–183; BP diastolic 56–78
[2020-10-24 06:24] LABS: BUN 39 mg/dL (8-23); BUN/CREATININE RATIO 48 (12-20 (CALC)); CHLORIDE 96 mmol/l (95-108); CREATININE 0.8 mg/dL (0.5-1.0); GFR > 60 ML/MIN (>=60 (CALC)); GFR FOR AFR.AMER. > 60 ML/MIN (>=60 (CALC)); POTASSIUM 3.3 mmol/l (3.5-5.1); SODIUM 140 mmol/l (137-146)
[2020-10-24 06:31] LABS: ANION GAP 5 (6-22 (CALC))
[2020-10-24 06:40] LABS: CARBON DIOXIDE 42 mmol/l (22-30)
[2020-10-25] VITALS: BP 135/49
[2020-10-25 04:00] VITALS: BP 139/74
[2020-10-25 05:19] LABS: HEMATOCRIT 33.5 % (37.0-47.0); MEAN CELL VOLUME 89.3 fL CALC (80.0-100.0); MEAN CORPUSCULAR HGB 26.7 pG CALC (26.0-32.0); MEAN CORPUSCULAR HGB CONC 29.9 g/dL CAL (32.0-36.0); RED BLOOD COUNT 3.75 mill/uL (4.20-5.60); RED CELL DISTRI WIDTH 15.4 % (11.5-15.5)
[2020-10-25 05:35] LABS: BUN 36 mg/dL (8-23); BUN/CREATININE RATIO 44 (12-20 (CALC)); CARBON DIOXIDE 38 mmol/l (22-30); CHLORIDE 99 mmol/l (95-108); CREATININE 0.8 mg/dL (0.5-1.0); GFR > 60 ML/MIN (>=60 (CALC)); GFR FOR AFR.AMER. > 60 ML/MIN (>=60 (CALC)); MAGNESIUM 2.1 mg/dL (1.6-2.3); SODIUM 139 mmol/l (137-146)
[2020-10-25 05:48] LABS: ANION GAP 6 (6-22 (CALC))
[2020-10-25 07:05] VITALS: BP 158/71
[2020-10-25] MEDS ORDERED: MEDDOSEPAK PO (09:47)
[2020-10-25] MEDS ORDERED: VANCOMYCIN HCL125 M1 PO (09:50)
[2020-10-25 11:29] VITALS: BP 90/63
== END 2020-10-25 13:25 | DRG 291 ==
LOC: ED 09:04 → ED-I 11:55 → ED 12:27 → MS2 12:28 → ED-I 10-22 01:00 → MS2 10-22 08:00 → ICU 10-22 18:00 → MS2 10-24 13:07
PROVIDERS: Family Medicine; Nurse Practitioner; Nurse Practitioner Family; ADMIT Internal Medicine; ATTEND Internal Medicine
PROC: 02HV33Z Insertion of Infusion Device into Superior Vena Cava, Percutaneous Approach (ICD-10-PCS; principal; 2020-10-22)
PROC: B518ZZA Fluoroscopy of Superior Vena Cava, Guidance (ICD-10-PCS; 2020-10-22)
DX: I11.0 Hypertensive heart disease with heart failure (principal); I63.9 Cerebral infarction, unspecified; N39.0 Urinary tract infection, site not specified; J45.901 Unspecified asthma with (acute) exacerbation; A04.72 Enterocolitis due to Clostridium difficile, not specified as recurrent; E87.3 Alkalosis; G81.94 Hemiplegia, unspecified affecting left nondominant side; R47.01 Aphasia; R29.810 Facial weakness; R29.713 NIHSS score 13; I50.9 Heart failure, unspecified; E83.42 Hypomagnesemia; E11.9 Type 2 diabetes mellitus without complications; J44.9 Chronic obstructive pulmonary disease, unspecified; R53.1 Weakness; E03.9 Hypothyroidism, unspecified; G47.33 Obstructive sleep apnea (adult) (pediatric); R13.12 Dysphagia, oropharyngeal phase; K21.9 Gastro-esophageal reflux disease without esophagitis; G40.909 Epilepsy, unspecified, not intractable, without status epilepticus; B96.5 Pseudomonas (aeruginosa) (mallei) (pseudomallei) as the cause of diseases classified elsewhere; Z79.4 Long term (current) use of insulin; Z95.0 Presence of cardiac pacemaker; Z95.5 Presence of coronary angioplasty implant and graft; Z87.440 Personal history of urinary (tract) infections; Z86.16 Personal history of COVID-19; Z20.822 Contact with and (suspected) exposure to COVID-19
CPT/HCPCS: G0378; J0153; J0282; J0692; J1650; J3475; Q3014; Q9967